=== PATIENT | female | born 1990 | race Caucasian/White ===

== ENCOUNTER 2019-11-25 12:09 | Emergency (ER) | payer BC, SELFPAY ==
--- NOTE | ~2019-11-25 | CT_ITS ---
EXAMINATION: CT brain wo con EXAM DATE: 11/25/2019 13:12 INDICATION: Temporary intermittent vision loss. Frontal headache. TECHNIQUE: Spiral CT of the head was performed without contrast. Axial, coronal and sagittal images were reviewed. The dose-length product (DLP) for this examination was 605.33 mGy-cm. The exposure w as tailored according to patient size, and iterative reconstruction (ASIR) was used as additional dos e reduction technique. There is no prior study for comparison. FINDINGS: There is no acute intraparenchymal hemorrhage. No evidence of intraparenchymal brain mass lesion. No evidence of acute infarction. There is no mass effect or midline shift. The ventricles are normal in size. There are no extra-axial collections. There are no acute calvarial fractures. T he orbits are unremarkable. Soft tissue is unremarkable. The visualized sinuses and mastoid air vandana ls are well aerated. IMPRESSION: 1. Normal head CT examination. Reviewed, dictated and finalized at location B.
--- NOTE | 2019-11-25 12:28 | ED.HA ---
HPI - Headache General Chief Complaint: Headache Stated Complaint: vision loss headache Time Seen by Provider: 11/25/19 12:28 Source: patient Mode of arrival: ambulatory Limitations: no limitations History of Present Illness HPI Narrative: 28-year-old woman with a history of headaches comes in today complaining of sudden onset of intermittent visual loss at approximately 10:55 a.m. this morning. Patient states that last about 4550 minutes. She states the symptoms started in her left eye and resembled blurred vision however she was unable to make out anything in front of her, even a waving hand. The symptoms then went to her right eye. The symptoms in her left eye seemed somewhat intermittent at 1st. MD elicited complaint: headache Time: 10:55 Onset description: suddenly Location: diffuse Severity: moderate Quality & Timing: throbbing Exacerbating factors: none Relieving factors: nothing Context: occurred at rest Associated symptoms: nausea Related Data Home Medications Medication Instructions Recorded Confirmed bupropion HCl 150 mg PO DAILY 11/25/19 11/25/19 ergocalciferol (vitamin D2) 1,250 mcg PO WEEKLY 11/25/19 11/25/19 [Vitamin D2] ibuprofen 600 mg PO QID 11/25/19 11/25/19 lamotrigine 25 mg PO DAILY 11/25/19 11/25/19 metoprolol succinate 50 mg PO DAILY 11/25/19 11/25/19 Allergies Allergy/AdvReac Type Severity Reaction Status Date / Time sumatriptan Allergy Intermediate Unverified 09/24/19 10:57 Review of Systems Constitutional: Constitutional: Denies chills, Denies fever(s) and Denies weakness Eyes: Eyes: Denies change in vision and Denies photophobia ENT: Denies dysphagia, Denies nasal congestion and Denies sore throat Cardiovascular: Cardiovascular: Denies chest pain and Denies radiating jaw, neck or arm pain Respiratory: Respiratory: Denies cough, Denies dyspnea and Denies wheezing Gastrointestinal: Gastrointestinal: Denies abdominal pain, Denies diarrhea, Reports nausea and Denies vomiting Genitourinary: Genitourinary: Denies nocturia and Denies dysuria Musculoskeletal: Musculoskeletal: Denies back pain, Denies arthralgias and Denies joint swelling Integumentary/Breasts: Skin/Breast: Denies pruritus, Denies erythema and Denies rash Neurologic: Denies vertigo, Denies dizziness and Denies syncope Endocrine: Endocrine: Denies polydipsia and Denies polyuria Hematologic/Lymphatic: Hematologic/Lymphatic: Denies easy bleeding and Denies easy bruising Allergic/Immunologic: Allergic/Immunologic: Denies lip swelling and Denies wheezing PMFSH Past Medical History Medical History Hypertension Mood disorder Social History Social History Smoking status: Never smoker Alcohol intake: never Substance use: never Living arrangements: with family Exam Const: General: healthy appearing and alert Orientation/consciousness: patient oriented x3 Limitations: no limitations Other: mild acute distress. HENMT: Head: normal to inspection Ears: external ears normal, TM's normal bilaterally and EAC's normal General nose exam: Normal nares present Throat: posterior oropharynx normal and uvula midline Eyes: Conjunctivae: conjunctivae normal Pupils: Equal, round and reactive pupils present EOM: EOMs intact bilaterally Resp: Effort & Inspection: normal respiratory effort and not labored Auscultation: clear to auscultation bilaterally, no rales, no rhonchi and no wheezes Cardio: Rate: regular rate Rhythm: regular rhythm Heart sounds: no murmurs GI: Inspection: non-distended GI Palp: Yes Soft to palpation, No Tenderness to palpation present (GI), No Guarding due to palpation present (GI) and No Rigid due to palpation Skin: General skin exam: normal color, no jaundice and no pallor Rashes: no rashes Neuro: General: patient oriented x3, moves all extremities, no focal motor defic
[2019-11-25 12:40] VITALS: BP 130/87; PULSE 67; RESP 20; TEMP 36.7; O2SAT 99
[2019-11-25 12:50] LABS: Add Urine Microscopic? YES; Appearance Urine Clear (Clear); Bilirubin Urine Negative (Negative); Blood Urine Negative (Negative); Color Urine Yellow (Yellow); Glucose Urine UA Negative (Negative); Ketones Urine Negative (Negative); Leukocyte Esterase Ur Trace (Negative); Nitrate Urine Negative (Negative); Protein Urine Negative (Negative); Specific Grav Ur 1.025 (1.010-1.020); Urobilinogen Urine 0.2 mg/dL (0.2-1.0)
[2019-11-25 12:55] LABS: Bacteria Urine 1+ /hpf; Mucus Urine Few /lpf; RBC Urine 0-2 /hpf (0-2); Squamous Epithelial Cell Urine Moderate /hpf (Few); WBC Urine 0-3 /hpf (0-3)
[2019-11-25 13:02] LABS: Basophils Absolute Auto 0.03 K/mm3 (0.00-0.10); Basophils Percent Auto 0.4 % (0.0-1.0); Eosinophils Absolute Auto 0.31 K/mm3 (0.02-0.50); Eosinophils Percent Auto 4.2 % (1.0-6.0); Hematocrit 40.3 % (35.0-49.0); Hemoglobin 12.8 g/dL (12.0-15.0); Immature Granulocyte Absolute 0.03 K/mm3 (0.00-0.00); Immature Granulocyte Percent A 0.4 % (0.0-0.0); Lymphocytes Absolute Auto 1.92 K/mm3 (1.10-4.50); Lymphocytes Percent Auto 25.8 % (18.0-42.0); Mean Corpuscular HGB Conc 31.8 g/dL (32.0-36.0); Mean Corpuscular Hemoglobin 25.3 pg (27.0-31.0); Mean Corpuscular Volume 79.8 fL (78.0-102.0); Mean Platelet Volume 9.7 fl (9.2-11.8); Monocytes Absolute Auto 0.58 K/mm3 (0.10-0.90); Monocytes Percent Auto 7.8 % (2.0-11.0); Neutrophils Absolute Auto 4.6 K/mm3 (1.7-7.2); Neutrophils Percent Auto 61.4 % (50.0-70.0); Platelet Count Result 288 K/mm3 (150-420); Red Blood Count 5.05 M/mm3 (4.20-5.40); Red Cell Distribution Width 14.2 % (11.6-14.4); White Blood Count 7.5 K/mm3 (4.8-10.8)
[2019-11-25 13:15] LABS: Partial Thromboplastin Time 30.8 SEC (22.3-31.6); Prothrombin Time 10.5 Seconds (9.64-11.0)
[2019-11-25 13:17] LABS: Alanine Aminotransferase 28 U/L (14-59); Albumin Level 3.7 g/dL (3.4-5.0); Alkaline Phosphatase 72 U/L (46-116); Aspartate Amino Transferase 14 U/L (15-37); Bilirubin,Total 0.3 mg/dL (0.00-1.00); Blood Urea Nitrogen 11 mg/dL (7-18); Carbon Dioxide 28 mmol/L (21-32); Chloride 101 mmol/L (98-108); Estimated Glomerular Filt Rate > 60; Glucose 98 mg/dL (70-99); Osmolality Calculated 285 mOsm/kg (285-295); Sodium 138 mmol/L (136-145); Total Protein 8.1 g/dL (6.4-8.2)
[2019-11-25 13:25] LABS: CRP 0.8 mg/dL (0.0-0.9)
[2019-11-25] MEDS: ONDANSETRON HCL ODT 4 MG TABLET PO (13:33)
[2019-11-25 14:07] LABS: Erythrocyte Sedimentation Rate 18 mm/hr (0-15)
--- NOTE | 2019-11-25 14:51 | PC.NURSE ---
DR RIOS CALLED FOR CONSULT
[2019-11-25 15:05] VITALS: BP 142/84; PULSE 76
== END 2019-11-25 13:05 | disposition home or self-care (01) ==
PROVIDERS: Emergency Provider Emergency Medicine; PCP Family Medicine
DX: G43.909 Migraine, unspecified, not intractable, without status migrainosus (principal); G45.3 Amaurosis fugax
CPT/HCPCS: 36415; 70450; 80053; 81001; 85025; 85610; 85652; 85730; 86140; 99282; 99284; A9270

== ENCOUNTER 2020-10-18 13:06 | Outpatient (CLI) | payer OTHER, SELFPAY ==
[2020-10-18 14:08] LABS: SARS-CoV-2 Ag Negative (Negative)
== END 2020-10-18 13:07 | disposition home or self-care (01) ==
LOC: CHSLAB 13:10
PROVIDERS: PCP Family Medicine; Visit Provider Nurse Practitioner Psychiatric/Mental Health
DX: R11.10 Vomiting, unspecified (principal)
CPT/HCPCS: 87426; C9803

== ENCOUNTER 2020-10-31 03:08 | Emergency (ER) | payer OTHER, SELFPAY ==
--- NOTE | ~2020-10-31 | XR_ITS ---
EXAMINATION: XR chest 2V DATE: 10/31/2020 04:08 INDICATION: Chest pain. TECHNIQUE: Frontal and lateral views of the chest were obtained. COMPARISON: Chest 2 views 07/20/2014, chest CT 01/06/2018 FINDINGS: The chest demonstrates clear lungs without pneumonia, pleural effusion, or pneumothorax. Th e heart size is normal. IMPRESSION: 1. No acute cardiopulmonary disease. Reviewed, dictated and finalized at location A.
[2020-10-31 03:08] VITALS: BP 139/101; PULSE 73; RESP 20; TEMP 37.1; O2SAT 99
[2020-10-31 03:36] VITALS: PULSE 77
--- NOTE | 2020-10-31 03:47 | ECG_ITS ---
Measurements Intervals [place] Rate: 76 P: 42 MA: 197 QRS: -13 QRSD: 112 T: 12 QT: 387 QTc: 436 Interpretive Statements SINUS RHYTHM LOW QRS VOLTAGE IN PRECORDIAL LEADS INTRAVENTRICULAR CONDUCTION DELAY VOLTAGE CRITERIA FOR LVH BORDERLINE T WAVE ABNORMALITY- ANTERIOR LEADS BASELINE ARTIFACT- I, II, III, AVR, AVL, AVF, V6 BORDERLINE ECG Electronically Signed On 11-01-2020 6:50:48 CDT by Cameron Espinoza D.O.
--- NOTE | 2020-10-31 03:59 | ED.CHESTPAIN ---
HPI - Chest Pain General Chief Complaint: Chest Pain Stated Complaint: chest pain Time Seen by Provider: 10/31/20 03:20 Source: patient Mode of arrival: ambulatory Limitations: no limitations History of Present Illness HPI narrative: Patient comes in after having chest heaviness at home for about 20 minutes. She says this happened after sex. Chest heaviness is moderately severe, without shortness of breath, diaphoresis, nausea or radiation, and ongoing since about 20 minutes ago. No other associated signs or symptoms. Medications at home, have not made this feel better. MD complaint: chest heaviness Onset (ago): minute(s) Timing of current episode: constant Prior episodes: Yes Onset: during exertion Pain location: substernal Pain radiation: none Severity: moderate Quality: tightness Relieving factors: nothing Exacerbating factors: exertion Context: other (pain after sexual activity) Associated symptoms: other (anxiety) Treatment prior to arrival: aspirin Related Data Home Medications Medication Instructions Recorded Confirmed ergocalciferol (vitamin D2) 1,250 mcg PO WEEKLY 11/25/19 10/31/20 [Vitamin D2] lamotrigine 25 mg PO DAILY 11/25/19 10/31/20 metoprolol succinate 50 mg PO DAILY 11/25/19 10/31/20 escitalopram oxalate 20 mg PO DAILY 10/31/20 10/31/20 lithium carbonate 900 mg PO DAILY 10/31/20 10/31/20 Allergies Allergy/AdvReac Type Severity Reaction Status Date / Time sumatriptan Allergy Intermediate Unknown Unverified 10/31/20 03:37 vancomycin AdvReac Redness of Verified 10/31/20 03:37 Skin Review of Systems Constitutional: Constitutional: Reports no additional constitutional complaints Eyes: Eyes: Reports no additional eye complaints ENT: Reports system reviewed and no additional complaints, except as documented Cardiovascular: Cardiovascular: Reports no additional cardiovascular complaints Respiratory: Respiratory: Reports no additional respiratory complaints Gastrointestinal: Gastrointestinal: Reports no additional gastrointestinal complaints Genitourinary: Genitourinary: Reports no additional female genitourinary complaints Musculoskeletal: Musculoskeletal: Reports no additional musculoskeletal complaints Integumentary/Breasts: Skin/Breast: Reports system reviewed and no additional complaints, except as docu Neurologic: Reports system reviewed and no additional complaints, except as documented Psychiatric: Psychiatric: Reports no additional psychiatric complaints Endocrine: Endocrine: Reports no additional endocrine complaints Hematologic/Lymphatic: Hematologic/Lymphatic: Reports no additional hematologic/lymphatic complaints Allergic/Immunologic: Allergic/Immunologic: Reports no additional allergic/immunologic complaints [facility] Past Medical History Medical History (Updated 11/03/20 @ 03:42 by Ad Gutierrez MD) Hypertension Mood disorder Surgical History Surgical History (Updated 11/03/20 @ 03:38 by Ad Gutierrez MD) No significant past surgical history Family History Family History Other No significant family history Social History Social History Smoking status: Never smoker Alcohol intake: never Substance use: never Exam Const: General: no acute distress Orientation/consciousness: patient oriented x3 HENMT: Head: normal to inspection Ears: external ears normal and TM's normal bilaterally General nose exam: Normal external nose present Mouth: Yes Normal oral and palatal mucosa present Throat: posterior oropharynx normal Eyes: Conjunctivae: conjunctivae normal Neck: Neck: normal visual inspection and no lymphadenopathy Chest: Chest palpation & inspection: normal inspection of the chest Resp: Effort & Inspection: normal respiratory effort Auscultation: clear to auscultation bilaterally Cardio: Rate: regular rate Rhythm: regular rhythm G
[2020-10-31 04:06] LABS: Basophils Absolute Auto 0.03 K/mm3 (0.00-0.10); Basophils Percent Auto 0.4 % (0.0-1.0); Eosinophils Absolute Auto 0.13 K/mm3 (0.02-0.50); Eosinophils Percent Auto 1.8 % (1.0-6.0); Hematocrit 33.9 % (35.0-49.0); Immature Granulocyte Absolute 0.02 K/mm3 (0.00-0.00); Immature Granulocyte Percent A 0.3 % (0.0-0.0); Lymphocytes Absolute Auto 2.26 K/mm3 (1.10-4.50); Lymphocytes Percent Auto 31.4 % (18.0-42.0); Mean Corpuscular HGB Conc 29.5 g/dL (32.0-36.0); Mean Corpuscular Hemoglobin 22.1 pg (27.0-31.0); Mean Platelet Volume 9.6 fl (9.2-11.8); Monocytes Absolute Auto 0.59 K/mm3 (0.10-0.90); Monocytes Percent Auto 8.2 % (2.0-11.0); Neutrophils Absolute Auto 4.2 K/mm3 (1.7-7.2); Neutrophils Percent Auto 57.9 % (50.0-70.0); Platelet Count Result 363 K/mm3 (150-420); Red Blood Count 4.52 M/mm3 (4.20-5.40); Red Cell Distribution Width 15.1 % (11.6-14.4); White Blood Count 7.2 K/mm3 (4.8-10.8)
[2020-10-31 04:22] LABS: Alanine Aminotransferase 29 U/L (14-59); Albumin Level 3.4 g/dL (3.4-5.0); Alkaline Phosphatase 64 U/L (46-116); Anion Gap 9 mmol/L (8-16); Aspartate Amino Transferase 10 U/L (15-37); Bilirubin,Total 0.1 mg/dL (0.00-1.00); Blood Urea Nitrogen 12 mg/dL (7-18); Calcium 8.8 mg/dL (8.5-10.1); Carbon Dioxide 28 mmol/L (21-32); Chloride 100 mmol/L (98-108); Estimated CRCL calculation 121 ml/min; Estimated Glomerular Filt Rate > 60; Glucose 123 mg/dL (70-99); NT Pro B Type Natriuretic Pept 12 pg/mL (0-125); Osmolality Calculated 284 mOsm/kg (285-295); Potassium 3.8 mmol/L (3.5-5.1); Sodium 137 mmol/L (136-145); Total Protein 7.5 g/dL (6.4-8.2); Troponin I < 4.0 ng/L (0.00-60.4)
--- NOTE | 2020-10-31 04:34 | PC.NURSE ---
PT RESTING PER COT, NO COMPLAINTS VOICED AT THIS TIME. AWAITING LAB RESULTS
[2020-10-31 06:12] VITALS: BP 128/89; PULSE 74; RESP 20; TEMP 36.6; O2SAT 99
== END 2020-10-31 06:10 | disposition left against medical advice (07) ==
PROVIDERS: Emergency Provider Emergency Medicine; PCP Family Medicine
DX: R07.9 Chest pain, unspecified (principal)
CPT/HCPCS: 36415; 71046; 80053; 83880; 84484; 85025; 85380; 93005; 99283; 99284

== ENCOUNTER 2020-11-26 10:49 | Emergency (ER) | payer OTHER, SELFPAY ==
[2020-11-26] VITALS (14 sets, daily range): BP systolic 136–156; BP diastolic 82–107; PULSE 75–85; RESP 16–32; TEMP 37.1; O2SAT 97–100
--- NOTE | ~2020-11-26 | CT_ITS ---
EXAMINATION: CT brain wo con INDICATION: Hypertension COMPARISON: 11/25/2019 TECHNIQUE: Standard unenhanced head CT. The dose-length product (DLP) was 681.00 mGy-cm. The mA was a djusted according to patient size. Iterative reconstruction technique was employed. FINDINGS: There is no intracranial hemorrhage, acute infarction, or abnormal mass lesion. The ventric les are normal. There is no abnormal mass effect or midline shift. The tyson-white matter differentiat ion is normal. The basal cisterns are patent. The orbits are normal. The paranasal sinuses, mastoids and calvarium are normal. IMPRESSION: 1. No acute intracranial abnormality. Reviewed, dictated and finalized at location A.
--- NOTE | ~2020-11-26 | XR_ITS ---
EXAMINATION: XR chest 2V DATE: 11/26/2020 11:18 INDICATION: Hypertension and shortness of breath TECHNIQUE: PA and lateral views of the chest are obtained. COMPARISON: 10/31/2020 FINDINGS: The lungs are free of acute opacities. There is no pleural effusion or pneumothorax. The ca rdiomediastinal silhouette is normal. There is mild thoracic spondylosis. IMPRESSION: 1. No acute cardiopulmonary abnormality. Reviewed, dictated and finalized at location A.
--- NOTE | 2020-11-26 11:01 | ECG_ITS ---
Measurements Intervals [place] Rate: 79 P: 26 ND: 192 QRS: -11 QRSD: 110 T: -1 QT: 389 QTc: 447 Interpretive Statements SINUS RHYTHM VOLTAGE CRITERIA FOR LVH BORDERLINE T WAVE ABNORMALITY- ANT/INF LEADS BORDERLINE ECG Electronically Signed On 11-26-2020 11:11:43 CDT by Cameron Espinoza D.O.
--- NOTE | 2020-11-26 11:38 | ED.GENADULT ---
HPI - General Adult General Chief complaint: Recheck/Abnormal Lab/Rx Stated complaint: High blood pressure Time Seen by Provider: 11/26/20 11:09 Source: patient and RN notes reviewed Mode of arrival: ambulatory Limitations: no limitations History of Present Illness HPI narrative: Patient is 29 years old white female presents with palpitation started last night lasted for few hours and then resolved with blood pressure 180/104. History of hypertension on metoprolol 50 mg once a day. Patient denies any stress. This morning patient was working and started having headache again and noticed that her neck is nodding. Currently patient feeling stiff in her neck. Patient chewed tobacco, denies drinking or using marijuana. Blood pressure on arrival to the emergency room was 156/107. Patient denies any fever, chills, nausea, vomiting, chest pain, shortness of breath. Related Data Home Medications Medication Instructions Recorded Confirmed ergocalciferol (vitamin D2) 1,250 mcg PO WEEKLY 11/25/19 10/31/20 [Vitamin D2] lamotrigine 25 mg PO DAILY 11/25/19 10/31/20 metoprolol succinate 50 mg PO DAILY 11/25/19 10/31/20 escitalopram oxalate 20 mg PO DAILY 10/31/20 10/31/20 lithium carbonate 900 mg PO DAILY 10/31/20 10/31/20 Allergies Allergy/AdvReac Type Severity Reaction Status Date / Time sumatriptan Allergy Intermediate Unknown Verified 11/26/20 11:53 vancomycin AdvReac Redness of Verified 11/26/20 11:53 Skin Review of Systems Review of Systems: Narrative: CONSTITUTIONAL: Denies fever, chills, or sweats. EYES: Denies visual changes, redness, or discharge. ENT: Denies rhinorrhea, congestion, sore throat, or otalgia. CARDIOVASCULAR: Denies chest pain, palpitations, or edema. RESPIRATORY: Denies cough or dyspnea. GASTROINTESTINAL: Denies abdominal pain, nausea, vomiting, or diarrhea. GENITOURINARY: Denies dysuria or hematuria. SKIN: Denies rash or itching. MUSCULOSKELETAL: Denies back pain, joint pain, or myalgia. NEUROLOGIC: Denies headache, numbness, or weakness. PSYCHIATRIC: Denies anxiety or depression. [facility] Past Medical History Medical History Hypertension Mood disorder Surgical History Surgical History No significant past surgical history Family History Family History Other No significant family history Social History Social History Smoking status: Never smoker Alcohol intake: never Substance use: never Exam Narrative: Exam Narrative: General appearance: Well-developed, well-nourished, laying down in bed comfortable, no family member at the bedside Skin: Normal color Head: Normocephalic, nontraumatic Eyes: Clear conjunctiva ENT: Oropharynx normal, ears normal, nose normal Neck: Supple, nontender Chest and respiratory: Airway patent, no respiratory distress, no accessory muscle use Heart: Regular rate/rhythm Abdomen: Soft, nontender, no organomegaly, quiet bowel sounds Vascular: Normal peripheral pulses, normal capillary refill. Musculoskeletal: Normal range of motion, nontender back Neurologic: Alert and oriented ?3, [employer] is normal as tested, no gross motor deficit Course Course Emergency Course: Stable Reevaluation(s) Reevaluation #1: Currently patient is asymptomatic Douglas level ordered, the machine is down, Blood pressure at the time of discharge is 132/90 after 1 mg of Ativan IV. Date: 11/26/20 Time: 14:43 Vital Signs Vital signs: Vital Signs Pulse Oximetry 99 11/26/20 10:55 Temperature
[2020-11-26 11:47] LABS: Basophils Percent Auto 0.7 % (0.2-1.2); Eosinophils Absolute Auto 0.1 K/mm3 (0-0.3); Eosinophils Percent Auto 2.3 % (0-4.4); Hematocrit 33.6 % (37.0-47.0); Hemoglobin 9.7 g/dL (12.0-15.0); Immature Granulocyte Absolute 0.03 K/mm3 (0.00-0.031); Immature Granulocyte Percent A 0.5 % (0-0.5); Lymphocytes Absolute Auto 1.54 K/mm3 (0.9-3.2); Mean Corpuscular HGB Conc 28.9 g/dl (32-36); Mean Corpuscular Hemoglobin 21.5 pg (26-34); Mean Corpuscular Volume 74.5 fl (80-100); Mean Platelet Volume 9.2 fl (7.4-10.4); Monocytes Absolute Auto 0.4 K/mm3 (0.1-0.6); Monocytes Percent Auto 7.2 % (2.6-8.5); Neutrophils Percent Auto 64.3 % (45.5-73.1); Platelet Count Result 356 k/mm3 (150-375); Red Blood Count 4.51 M/mm3 (4.2-5.4); Red Cell Distribution Width 15.9 % (11.5-14.5); White Blood Count 6.2 K/mm3 (4.5-10.0)
[2020-11-26 11:57] LABS: Anion Gap 6 mmol/L (8-16); Blood Urea Nitrogen 7 mg/dL (7-17); Calcium 9.3 mg/dL (8.4-10.2); Carbon Dioxide 27 mmol/L (22-30); Chloride 106 mmol/L (98-107); Estimated CRCL calculation 153 ml/min; Estimated Glomerular Filt Rate > 60; Glucose 106 mg/dL (65-105); Potassium 4.1 mmol/L (3.4-5.0); Sodium 139 mmol/L (137-145)
[2020-11-26 12:00] LABS: Alanine Aminotransferase 23 U/L (4-35); Albumin Level 4.2 g/dL (3.5-5.1); Alkaline Phosphatase 55 U/L (38-126); Aspartate Amino Transferase 23 U/L (14-36); Bilirubin,Total 0.2 mg/dL (0.2-1.3)
[2020-11-26] MEDS: ASPIRIN 81 MG CHEWABLE TABLET 324 MG PO (12:05)
[2020-11-26] MEDS: LORazepam INJ (*CRX) 2 MG/ML VIAL 1 MG IV PUSH (12:05)
[2020-11-26 12:08] LABS: Prothrombin Time 13.7 Seconds (11.1-14.7)
[2020-11-26 12:09] LABS: Troponin I < 0.012 ng/mL (0.000-0.034)
[2020-11-26 12:09] LABS: Partial Thromboplastin Time 29.2 SECONDS (22.3-36.8)
[2020-11-26 12:11] LABS: Hypochromasia 3+ (NORMAL); Ovalocytes 1+ (NORMAL); Platelet Estimate Adequate (Adequate)
[2020-11-26 13:11] LABS: Add Urine Microscopic? NO; Appearance Urine Clear (Clear); Bilirubin Urine Negative (Negative); Blood Urine Negative (Negative); Color Urine Yellow (Yellow); Glucose Urine UA Negative (Negative); Ketones Urine Negative (Negative); Leukocyte Esterase Ur Negative LEU/UL (Negative); Nitrate Urine Negative (Negative); Protein Urine Negative (Negative); Specific Grav Ur 1.014 (1.001-1.035); Urobilinogen Urine Negative mg/dL (<2.0)
[2020-11-26 15:15] LABS: Lithium 0.2 mmol/L (0.6-1.2)
[2020-11-26 15:20] LABS: Troponin I < 0.012 ng/mL (0.000-0.034)
== END 2020-11-26 16:24 | disposition home or self-care (01) ==
PROVIDERS: Emergency Provider Emergency Medicine; PCP Family Medicine
DX: R00.2 Palpitations (principal); I10 Essential (primary) hypertension
CPT/HCPCS: 36415; 70450; 71046; 80048; 80076; 80178; 81003; 84443; 84484; 85025; 85610; 85730; 93005; 96374; 99284; A9270; J2060

== ENCOUNTER 2020-12-12 21:32 | Emergency (ER) | payer OTHER, SELFPAY ==
--- NOTE | ~2020-12-12 | XR_ITS ---
EXAMINATION: XR chest 1V portable DATE: 12/12/2020 22:28 INDICATION: COVID-19 pneumonia. TECHNIQUE: A single frontal view of the chest was obtained. COMPARISON: Chest 2 views 11/26/2020, chest CT 01/06/2018 FINDINGS: The chest demonstrates clear lungs without pneumonia, pleural effusion, or pneumothorax. Th e heart size is normal. IMPRESSION: 1. No acute cardiopulmonary disease. Reviewed, dictated and finalized at location A.
[2020-12-12 22:00] VITALS: BP 140/80; PULSE 94; RESP 20; TEMP 37; O2SAT 98
--- NOTE | 2020-12-12 22:11 | ED.DENTAL ---
HPI - Dental/Oral General Chief complaint: Shortness of Breath/Dyspnea Stated complaint: URI,fever,SOB Time Seen by Provider: 12/12/20 22:11 Source: patient Mode of arrival: ambulatory Limitations: no limitations History of Present Illness HPI Narrative: Patient comes in with complaints of fever off and on since yesterday pm, starting about 10mp last night. She states she has felt severely ill, with body aches, hurting all over, having a mild headache, and fatigue. This has been ongoing since Sunday afternoon feeling severely ill. She has been exposed to Covid, and started just after that. Medications at home have not helped her to feel better, or modified the situation. she also complains of chronic tooth pain in what appears to be her left lower 6 year molar, which is broken off mostly, but does not have a distinct red ring around it. MD Complaint: tooth pain Onset (ago): week(s) Duration: intermittent Severity: mild Relieving factors: NSAIDs Context: history of dental caries Related Data Home Medications Medication Instructions Recorded Confirmed ergocalciferol (vitamin D2) 1,250 mcg PO WEEKLY 11/25/19 12/12/20 [Vitamin D2] lamotrigine [Lamictal] 25 mg PO DAILY 11/25/19 12/12/20 metoprolol succinate [Toprol XL] 50 mg PO DAILY 11/25/19 12/12/20 escitalopram oxalate [Lexapro] 20 mg PO DAILY 10/31/20 12/12/20 lithium carbonate [Lithobid] 900 mg PO DAILY 10/31/20 12/12/20 Allergies Allergy/AdvReac Type Severity Reaction Status Date / Time sumatriptan Allergy Intermediate Unknown Verified 12/12/20 22:11 vancomycin AdvReac Redness of Verified 12/12/20 22:11 Skin Review of Systems Constitutional: Constitutional: Reports chills, Reports fatigue, Reports fever(s) and Reports weakness Eyes: Eyes: Reports no additional eye complaints ENT: Reports system reviewed and no additional complaints, except as documented Cardiovascular: Cardiovascular: Reports no additional cardiovascular complaints Respiratory: Respiratory: Reports cough Gastrointestinal: Gastrointestinal: Reports no additional gastrointestinal complaints Genitourinary: Genitourinary: Reports no additional female genitourinary complaints Musculoskeletal: Musculoskeletal: Reports no additional musculoskeletal complaints Integumentary/Breasts: Skin/Breast: Reports system reviewed and no additional complaints, except as docu Neurologic: Reports system reviewed and no additional complaints, except as documented Psychiatric: Psychiatric: Reports no additional psychiatric complaints Endocrine: Endocrine: Reports no additional endocrine complaints Hematologic/Lymphatic: Hematologic/Lymphatic: Reports no additional hematologic/lymphatic complaints Allergic/Immunologic: Allergic/Immunologic: Reports no additional allergic/immunologic complaints PMFSH Past Medical History Medical History Hypertension Mood disorder Surgical History Surgical History No significant past surgical history Family History Family History Mother Heart disease Other No significant family history Social History Social History Smoking status: Never smoker Alcohol intake: never Substance use: never Gender identity (if verbalized by the patient): Female Exam Const: General: healthy appearing and no acute distress Nutritional Appearance: well nourished Orientation/consciousness: patient oriented x3 HENMT: Head: normal to inspection Ears: external ears normal and TM's normal bilaterally General nose exam: Normal external nose present Face and sinus: normal facial exam Mouth: Yes Normal oral and palatal mucosa present Throat: posterior oropharynx normal Eyes: Conjunctivae: conjunctivae normal Neck: Neck: normal visual inspection and no lymphad
[2020-12-12 22:44] LABS: Hematocrit 36.9 % (35.0-49.0); Hemoglobin 10.9 g/dL (12.0-15.0); Mean Corpuscular HGB Conc 29.5 g/dL (32.0-36.0); Mean Corpuscular Hemoglobin 21.3 pg (27.0-31.0); Mean Corpuscular Volume 72.2 fL (78.0-102.0); Mean Platelet Volume 9.9 fl (9.2-11.8); Platelet Count Result 337 K/mm3 (150-420); Red Blood Count 5.11 M/mm3 (4.20-5.40); Red Cell Distribution Width 16.1 % (11.6-14.4); White Blood Count 2.8 K/mm3 (4.8-10.8)
[2020-12-12 22:49] LABS: Influenza Control Valid (Valid)
[2020-12-12 22:52] LABS: Alanine Aminotransferase 22 U/L (14-59); Albumin Level 3.6 g/dL (3.4-5.0); Alkaline Phosphatase 59 U/L (46-116); Anion Gap 13 mmol/L (8-16); Aspartate Amino Transferase 12 U/L (15-37); Bilirubin,Total 0.2 mg/dL (0.00-1.00); Blood Urea Nitrogen 10 mg/dL (7-18); Calcium 8.6 mg/dL (8.5-10.1); Carbon Dioxide 26 mmol/L (21-32); Chloride 101 mmol/L (98-108); Estimated CRCL calculation 138 ml/min; Estimated Glomerular Filt Rate > 60; Glucose 111 mg/dL (70-99); Osmolality Calculated 290 mOsm/kg (285-295); Potassium 3.9 mmol/L (3.5-5.1); Sodium 140 mmol/L (136-145); Total Protein 7.6 g/dL (6.4-8.2)
[2020-12-12 22:59] LABS: Lactic Acid Reflex 1.2 mmol/L (0.4-2.0)
[2020-12-12 23:14] LABS: SARS-CoV-2 RNA PCR Positive (Negative)
[2020-12-12 23:18] LABS: Add Urine Microscopic? NO; Appearance Urine Clear (Clear); Bilirubin Urine Negative (Negative); Blood Urine Negative (Negative); Color Urine Light Yellow (Yellow); Glucose Urine UA Negative (Negative); Ketones Urine Negative (Negative); Leukocyte Esterase Ur Negative LEU/UL (Negative); Nitrate Urine Negative (Negative); Protein Urine Negative (Negative); Specific Grav Ur >= 1.030 (1.010-1.020); Urobilinogen Urine 0.2 mg/dL (0.2-1.0); pH Urine 5.5 (5.0-8.0)
[2020-12-12 23:31] LABS: Anisocytosis 2+ (NORMAL); Band Neutrophils Percent 0 % (0-6); Basophils Absolute Manual 0.02 K/mm3 (0-0.1); Basophils Percent Manual 1 % (0-1); Eosinophils Percent Manual 0 % (1-6); Large Platelets Present; Lymphocytes Absolute Manual 1.23 K/mm3 (1.1-4.5); Lymphocytes Percent Manual 44 % (18-44); Microcytosis 1+ (NORMAL); Monocytes Absolute Manual 0.16 K/mm3 (0.1-0.90); Monocytes Percent Manual 6 % (3-9); Neutrophils Absolute Manual 1.37 K/mm3 (1.7-7.2); Neutrophils Percent Manual 49 % (46-73); Platelet Estimate Adequate (Adequate); Total Cells Counted 100
[2020-12-12 23:32] LABS: Ovalocytes 1+ (NORMAL)
[2020-12-12] MEDS: DEXAMETHASONE 4 MG TABLET 8 MG PO (23:35)
[2020-12-12 23:55] VITALS: BP 129/88; PULSE 88; RESP 20; TEMP 37.8; O2SAT 98
== END 2020-12-13 00:08 | disposition home or self-care (01) ==
PROVIDERS: Emergency Provider Emergency Medicine; PCP Family Medicine
DX: U07.1 COVID-19 (principal)
CPT/HCPCS: 36415; 71045; 80053; 81003; 83605; 85025; 87804; 99283; C9803; J8540; U0003; U0005

== ENCOUNTER 2022-12-29 19:33 | Emergency (ER) | payer OTHER, SELFPAY ==
[2022-12-29 19:44] VITALS: BP 160/90; PULSE 66; RESP 20; TEMP 36.6; O2SAT 100
--- NOTE | 2022-12-29 19:53 | ED.HA ---
HPI - Headache General Chief Complaint: Unspecified Stated Complaint: puking, eyes/head pain, worked in the heat Source: patient Mode of arrival: ambulatory Limitations: no limitations History of Present Illness HPI Narrative: 32-year-old female with a history migraine, hypertension, mood disorder presents to the ER a 2 day history of -- bilateral headache with photophobia. no focal neuro deficits. headache is similar to her usual headaches -- patient worked all day yesterday in high temperature and feels exhausted. -- patient has nausea with vomiting. No fever or chills MD elicited complaint: headache Pertinent past history: migraines and hypertension Onset (ago): day(s) ( symptoms started yesterday) Onset description: gradually Location: frontal and generalized Severity: severe Pain scale (0-10): 10 Quality & Timing: aching Exacerbating factors: none Relieving factors: nothing Context: occurred at rest Associated symptoms: nausea and vomiting Related Data Home Medications Medication Instructions Recorded Confirmed ergocalciferol (vitamin D2) 1,250 1,250 mcg PO WEEKLY 11/25/19 12/29/22 mcg (50,000 unit) capsule (Vitamin D2) escitalopram oxalate 20 mg tablet 20 mg PO DAILY 10/31/20 12/29/22 (Lexapro) Allergies Allergy/AdvReac Type Severity Reaction Status Date / Time sumatriptan Allergy Intermediate Unknown Verified 12/12/20 22:11 vancomycin AdvReac Redness of Verified 12/12/20 22:11 Skin Review of Systems Review of Systems: All systems reviewed & are unremarkable except as noted in HPI and below Constitutional: Constitutional: Reports as per HPI and Reports no additional constitutional complaints Eyes: Eyes: Reports as per HPI and Reports no additional eye complaints ENT: Reports system reviewed and no additional complaints, except as documented and Reports as per HPI Cardiovascular: Cardiovascular: Reports as per HPI and Reports no additional cardiovascular complaints Respiratory: Respiratory: Reports as per HPI and Reports no additional respiratory complaints Gastrointestinal: Gastrointestinal: Reports as per HPI and Reports no additional gastrointestinal complaints Genitourinary: Genitourinary: Reports no additional female genitourinary complaints Musculoskeletal: Musculoskeletal: Reports no additional musculoskeletal complaints and Reports as per HPI Integumentary/Breasts: Skin/Breast: Reports system reviewed and no additional complaints, except as docu and Reports as per HPI Neurologic: Reports system reviewed and no additional complaints, except as documented and Reports as per HPI Psychiatric: Psychiatric: Reports no additional psychiatric complaints and Reports as per HPI Endocrine: Endocrine: Reports no additional endocrine complaints and Reports as per HPI Hematologic/Lymphatic: Hematologic/Lymphatic: Reports no additional hematologic/lymphatic complaints and Reports as per HPI Allergic/Immunologic: Allergic/Immunologic: Reports no additional allergic/immunologic complaints and Reports as per HPI [facility] Past Medical History Medical History Hypertension Mood disorder Surgical History Surgical History No significant past surgical history Family History Family History Mother Heart disease Other No significant family history Social History Social History Smoking status: Never smoker Alcohol intake: never Substance use: never Living arrangements: with family Gender identity (if verbalized by the patient): Female Exam Const: Orientation/consciousness: patient oriented x3 Limitations: no limitations HENMT: Head: normal to inspection Ears: external ears normal Face/Nose/Sinus: Normal external nose present Face and sinus: norm
[2022-12-29] MEDS: ONDANSETRON HCL ODT 4 MG TABLET PO (19:57)
[2022-12-29 20:14] LABS: Basophils Absolute Auto 0.04 K/mm3 (0.00-0.10); Basophils Percent Auto 0.6 % (0.0-1.0); Eosinophils Absolute Auto 0.15 K/mm3 (0.02-0.50); Eosinophils Percent Auto 2.1 % (1.0-6.0); Hematocrit 38.5 % (35.0-49.0); Hemoglobin 11.9 g/dL (12.0-15.0); Immature Granulocyte Absolute 0.02 K/mm3 (0.00-0.00); Immature Granulocyte Percent A 0.3 % (0.0-0.0); Lymphocytes Absolute Auto 2.07 K/mm3 (1.10-4.50); Lymphocytes Percent Auto 29.2 % (18.0-42.0); Mean Corpuscular HGB Conc 30.9 g/dL (32.0-36.0); Mean Corpuscular Hemoglobin 23.9 pg (27.0-31.0); Mean Corpuscular Volume 77.5 fL (78.0-102.0); Mean Platelet Volume 10.4 fl (9.2-11.8); Monocytes Percent Auto 8.5 % (2.0-11.0); Neutrophils Absolute Auto 4.2 K/mm3 (1.7-7.2); Neutrophils Percent Auto 59.3 % (50.0-70.0); Platelet Count Result 324 K/mm3 (150-420); Red Blood Count 4.97 M/mm3 (4.20-5.40); Red Cell Distribution Width 15.8 % (11.6-14.4); White Blood Count 7.1 K/mm3 (4.8-10.8)
[2022-12-29] MEDS: KETOROLAC 30 MG/ML VIAL (*BKC) IV PUSH (20:17)
[2022-12-29] MEDS: PROCHLORPERAZINE EDISYLATE 10 MG/2 ML VIAL IV PUSH (20:17)
[2022-12-29] MEDS: LACTATED RINGERS 1,000 ML 999 ML IV CONT (20:18)
[2022-12-29 20:31] LABS: Alanine Aminotransferase 26 U/L (14-59); Albumin Level 3.5 g/dL (3.4-5.0); Alkaline Phosphatase 74 U/L (46-116); Anion Gap 9 mmol/L (8-16); Aspartate Amino Transferase 15 U/L (15-37); Bilirubin,Total 0.4 mg/dL (0.00-1.00); Blood Urea Nitrogen 11 mg/dL (7-18); Calcium 8.8 mg/dL (8.5-10.1); Carbon Dioxide 27 mmol/L (21-32); Chloride 104 mmol/L (98-108); Estimated CRCL calculation 109 ml/min; Estimated Glomerular Filt Rate > 60; Glucose 104 mg/dL (70-99); Osmolality Calculated 289 mOsm/kg (285-295); Potassium 3.8 mmol/L (3.5-5.1); Sodium 140 mmol/L (136-145); Total Protein 7.6 g/dL (6.4-8.2)
[2022-12-29 20:36] LABS: Lactic Acid Reflex 1.1 mmol/L (0.4-2.0)
[2022-12-29 21:11] LABS: Appearance Urine Clear (Clear); Bilirubin Urine Negative (Negative); Blood Urine Negative (Negative); Color Urine Yellow (Yellow); Glucose Urine UA Negative (Negative); Ketones Urine Negative (Negative); Leukocyte Esterase Ur Negative LEU/UL (Negative); Nitrate Urine Negative (Negative); Protein Urine Negative (Negative)
[2022-12-29 21:12] LABS: Add Urine Microscopic? NO
[2022-12-29 21:29] VITALS: BP 140/90; PULSE 88; RESP 20; TEMP 36.6; O2SAT 96
== END 2022-12-29 21:34 | disposition home or self-care (01) ==
PROVIDERS: Emergency Provider Internal Medicine Critical Care Medicine; PCP Family Medicine
DX: R51.9 Headache, unspecified (principal); T67.5XXA Heat exhaustion, unspecified, initial encounter; I10 Essential (primary) hypertension
CPT/HCPCS: 36415; 80053; 81003; 83605; 85025; 96361; 96374; 96375; 99284; A9270; J0780; J1885; J7120

== ENCOUNTER 2023-07-07 16:40 | Emergency (ER) | payer OTHER, SELFPAY ==
[2023-07-07 16:47] VITALS: BP 152/96; PULSE 79; RESP 18; TEMP 37.3; O2SAT 100
--- NOTE | 2023-07-07 17:19 | PC.NURSE ---
area not visualized at this time. area of further evaluation upon supervisor tellers assessment.
--- NOTE | 2023-07-07 17:32 | ED.SKABFB ---
HPI - Skin/Abscess/Foreign Bdy General Chief complaint: Skin/Abscess/Foreign Body Stated complaint: Cyst burst on vagina Time Seen by Provider: 07/07/23 17:32 Source: patient, RN notes reviewed and old records reviewed Mode of arrival: ambulatory Limitations: no limitations History of Present Illness HPI narrative: 32 year old female who presents to [facility] care with complaints of noting swollen painful abscess to her right labia starting about 4 days ago that burst this morning. Patien reports that it drained yellowgreen purulen material and some bloody drainage but pain has significantly decreases. Patient here with concern of possibly needing antibiotic and requesting work note for today. Patient reports that she has had MRSA on her right arm previously and did have similar lesion to labia area about a year ago. MD complaint: abscess/boil Onset (ago): day(s) (4) Severity scale (1-10): 1 Treatments prior to arrival: NSAID and other (warm compresses) Related Data Home Medications Medication Instructions Recorded Confirmed ergocalciferol (vitamin D2) 1,250 1,250 mcg PO WEEKLY 11/25/19 12/29/22 mcg (50,000 unit) capsule (Vitamin D2) escitalopram oxalate 20 mg tablet 20 mg PO DAILY 10/31/20 12/29/22 (Lexapro) propranolol 20 mg tablet mg 07/07/23 ubrogepant 50 mg tablet (Ubrelvy) mg 07/07/23 Allergies Allergy/AdvReac Type Severity Reaction Status Date / Time sumatriptan Allergy Intermediate Unknown Verified 07/07/23 16:53 vancomycin AdvReac Redness of Verified 07/07/23 16:53 Skin Review of Systems Review of Systems: CONSTITUTIONAL: Denies fever, chills, or sweats. CARDIOVASCULAR: Denies chest pain, palpitations, or edema. RESPIRATORY: Denies cough or dyspnea. GASTROINTESTINAL: Denies abdominal pain, nausea, vomiting SKIN: Reports redness and swelling to right labia fold which broke open this morning and drained. Reports purulent drainage at first this morning then bloody looking drainage. painful, MUSCULOSKELETAL: Denies myalgia. NEUROLOGIC: Denies headache, numbness All systems reviewed & are unremarkable except as noted in HPI and below PMFSH Past Medical History Medical History (Updated 07/09/23 @ 12:38 by Elidia L. Stephanie, REPAIRER [employer] DOOR) GERD (gastroesophageal reflux disease) Hypertension Migraine Mood disorder MRSA infection Surgical History Surgical History History of cholecystectomy Family History Family History Mother Heart disease Other No significant family history Social History Social History Smoking status: Never smoker Alcohol intake: never Substance use: never Living arrangements: with family Gender identity (if verbalized by the patient): Female Comments At time of signature, agree with nursing past medical, surgical, social and family history. There is no relevant family history pertinent to the presenting complaint Exam Narrative: GENERAL: Well-appearing, well-nourished, and in no acute distress. HEAD: Normocephalic, atraumatic. EYES: PERRLA and EOMI. ENT: Nares clear, no rhinorrhea or epistaxis. Mucous membranes moist. NECK: Supple. no lymphadenopathy CHEST: Clear to auscultation. No respiratory distress. SAO2 100% on room air HEART: Regular rate and rhythm. No murmur heard. Normal peripheral pulses. ABDOMEN: Soft, nontender, nondistended, normal active bowel sounds. EXTREMITIES: Normal range of motion. No edema. SKIN: Warm, dry. Erythema, induration, tenderness,to right labia 0.25 circular draining lesion with bloody drainage noted, no acute warmth or swelling to area. decreased pain to site since abscess burst open, 4X4's applied to site. Patient repots less discomfort to site since it burst open and drained, afebrile NEURO: No focal deficits. Alert and oriented x3. Course Course Em
--- NOTE | 2023-07-07 17:43 | PC.NURSE ---
declined wound cx
== END 2023-07-07 17:52 | disposition home or self-care (01) ==
PROVIDERS: Emergency Provider Registered Nurse; PCP Family Medicine
DX: N76.4 Abscess of vulva (principal); K21.9 Gastro-esophageal reflux disease without esophagitis; I10 Essential (primary) hypertension; F39 Unspecified mood [affective] disorder; Z86.14 Personal history of Methicillin resistant Staphylococcus aureus infection
CPT/HCPCS: 99213; G0463

== ENCOUNTER 2024-12-21 05:21 | Emergency (ER) | payer OTHER, SELFPAY ==
[2024-12-21 05:22] VITALS: BP 142/97; PULSE 62; RESP 18; TEMP 36; O2SAT 100
--- OUTSIDE RECORDS SUMMARY | 2024-12-21 05:23 | XMS_ITS | Clinical Summary ---
Author Organization [facility] Address [facility] [place] [address] Care Team Providers Care Blow Mold Machine Operator Name Role Phone Omkar Cormier MD Primary Care Provider Social History Tobacco Use Types Packs/Day Years Used Date Smoking Tobacco: Never Assessed Comments Unknown Sex and Gender Information Value Date Recorded Sex Assigned at Not on file Legal Sex Female 5:53 PM RESEARCH STATISTICIAN Gender Identity Not on file Sexual Orientation Not on file Plan of Treatment Health Maintenance Due Date Last Done Comments Cervical Cancer Screening Pap Smear (Age 30 to 64) Every 3 Years 1991 Annual Physical 12/01/1994 DTaP, Tdap and Td Vaccines (5 - Tdap) 12/01/2002 12/26/1995, 03/20/1994, 12/09/1992, Additional history exists Hepatitis C 12/01/2009 Cervical Cancer Screening Pap with HPV Testing (Age 30 to 64) Every 5 Years 12/01/2021 Cervical Cancer Screening with HPV 12/01/2021 COVID-19 Vaccine ( season) 2024 Hepatitis B Vaccines Completed 08/26/2002, 01/29/2002, 12/24/2001 HPV Vaccines Aged Out No longer eligi ble based on patient's age to complete this topic Meningococcal B Vaccine Aged Out No l onger eligible based on patient's age to complete this topic Meningococcal Vaccine Aged Out No alexandru umm eligible based on patient's age to complete this topic Pneumococcal Vaccine: Pediatrics (0 to 5 Years) and At-Risk Patients (6 to 49 Years) Aged Out No longer eligible based on patient's age to complete this topic RSV Immunizations Under 20 Months Aged Out No longer eligible based on patient's age to complete this topic Insurance AETNA Care Teams Blow Mold Machine Operator Relationship Specialty Start Date End Date Omkar Cormier MD [address] [place] [id number] PCP - General FAMILY PRACTICE 05/23/21
--- OUTSIDE RECORDS SUMMARY | 2024-12-21 05:23 | XMS_ITS | Clinical Summary ---
Author Organization [facility] Address [address] [place] [address] Care Team Providers Care Financial Accountant Name Role Phone Omkar Cormier MD Primary Care Provider [phone] Source Comments [facility],non-owned Affiliates and Associated Physician Practices is amultiple site organization consisting of ambulatory clinics and hospital sitesin [place], [place], [place] and [place]. This disclosure is being madepursuant to the Care Everywhere program and may not contain all information available regarding this patient. Last updated 18.[facility] Allergies Active Allergy Reactions Criticality Noted Date Comments Sumatriptan Shortness of Breath High 07/30/2020 Vancomycin Itching 07/30/2020 Medications * Be aware that medications may not be up to date on this document. Alwaysverify current medications with the patient. lamoTRIgine (LAMICTAL) 100 MG tablet Take 200 mg by mouth at bedtime Active lithium carbonate (ESKALITH) 300 MG capsule Take 300-600 mg by mouth 2 times daily 300mg qam, 600 mg qpm Active escitalopram (LEXAPRO) 10 MG tablet Take 10 mg by mouth once daily Active metoprolol succinate XL 24hr (TOPROL XL) 50 MG tablet Take 50 mg by mouth once daily Active vitamin D3 (CHOLECALCIFERO L) 25 MCG (1000 UNITS) tablet Take 1,000 Units by mouth once daily Active pantoprazole EC (PROTONIX) 40 MG tablet Take 40 mg by mouth once daily Active ascorbic acid (VITAMIN C) 500 MG tablet Take 500 mg by mouth once daily Active Active Problems Problem Noted Date Diagnosed Date Rectal bleeding 08/12/2020 Esophageal dysphagia Gastroesophageal reflux dise ase with esophagitis without hemorrhage Dysphagia Resolved Problems Problem Noted Date Diagnosed Date Resolved Date Diarrhea 09/10/2020 Family History Medical History Relation Name Comments Colon polyps Mother Cancer - Colon Neg Hx Relation Name Status Comments Mother Social History Tobacco Use Types Packs/Day Years Used Date Smoking Tobacco: Every Day Smokeless Tobacco: Current Alcohol Use Standard Drinks/Week Comments Yes 0 (1 standard drink = 0.6 oz pur e alcohol) AUDIT-C Answer Date Recorded Q1: How often do you have a drink containing alc ohol? Monthly or less 08/12/2020 Average Number of Drinks Not on file 021 Frequency of Binge Drinking Not on file 08/02 Comments Unknown Sex and Gender Information Value Date Recorded Sex Assigned at Not on file Legal Sex Female 1:34 PM FINGERNAIL TECHNICIAN Gender Identity Not on file Sexual Orientation Not on file Last Filed Vital Signs Vital Sign Reading Time Taken Comments Blood Pressure 127/77 08/13/2020 12:50 PM FINGERNAIL TECHNICIAN Pulse 69 08/13/2020 12:50 PM FINGERNAIL TECHNICIAN Temperature 36.6 C (97.9 F) 08/13/2020 8:04 AM FINGERNAIL TECHNICIAN Respiratory Rate 16 08/13/2020 12:50 PM FINGERNAIL TECHNICIAN Oxygen Saturation 98% 08/13/2020 12:50 PM FINGERNAIL TECHNICIAN Inhaled Oxygen Concentration - - Weight 154.2 kg (340 lb) 08/12/2020 3:09 PM FINGERNAIL TECHNICIAN Height 180.3 cm (5' 11) 08/12/2020 3:09 PM FINGERNAIL TECHNICIAN Body Mass Index 47.42 08/12/2020 3:09 PM FINGERNAIL TECHNICIAN Plan of Treatment Health Maintenance Due Date Last Done Comments HIV SCREENING 12/01/2006 HEPATITIS C SCREENING 11/27/2009 DTAP/TDAP/TD VACCINES (1 - Tdap) 12/01/2010 HEPATITIS B VACCINE (1 of 3 - 19+ 3-dose series) 12/01/2010 PNEUMOCOCCAL VACCINE (1 of 2 - PCV) 12/01/2010 HPV VACCINE (1 - 3-dose SCDM series) 12/01/2018 COVID-19 VACCINE (1 - 2023-2 5 season) 2024 DEPRESSION SCREENING 06/04/2024 INFLUENZA VACCINE (#1) 2025 ZOSTER VACCINE (1 of 2) 12/01/2041 HIB VACCINE Aged Out No longer eligi ble based on patient's age to complete this topic MENINGOCOCCAL (Group B) VACC INE SHARED DECISION-MAKING Aged Out No longer eligibl e based on patient's age to complete this topic MENINGOCOCCAL GROUPS A/C/Y/W VACCINE Aged Out No longer eligible b ased on patient's age to complete this topic Insurance Advance Directives * Full Code (Latest Code Status on File) Date Activated Date Inactivated Comments 08/13/2020 1:31 PM 08/13/2020 5:04 PM * Full Code Date Activated Date Inactivated Comments 08/12/2020 9:52 PM 08/13/2020 1:31 PM Care Teams Financial Accountant Relationship Specialty Start Date End Date Omkar Cormier MD [address] [place] [address] PCP - General Family Medicine 07/30/20
--- OUTSIDE RECORDS SUMMARY | 2024-12-21 05:23 | XMS_ITS | Clinical Summary ---
Author Organization [facility] Address [address] [place] [address] Care Team Providers Care Assistant Professor Of Spanish Name Role Phone Omkar Cormier MD Primary Care Provider Allergies Active Allergy Reactions Criticality Noted Date Comments Sumatriptan Shortness of breath High 11/28/2017 Vancomycin Itching Low 11/28/2017 Medications LORazepam (ATIVAN) 0.5 mg tabletIndicatio ns:anxiety Take 0.5 mg by mouth every 6 (six) hours as needed for anxiety. Active ibuprofen (ADVIL,MOTRIN) 800 mg tablet Take 800 mg by mouth every 6 (six) hours as needed for pain. Active escitalopram (LEXAPRO) 10 mg tabletIndicatio ns:Anxiety with Depression Take 10 mg by mouth daily. Active ergocalciferol, vitamin D2, 2,000 unit tablet Take 1 tablet by mouth. Active docusate sodium (COLACE) 100 mg capsuleIndicati ons:constipatio n Take 1 capsule (100 mg total) by mouth 2 (two) times a day. 8 Active Additional Information Patient not taking.Reported on 03/27/2021 HYDROcodone-shiloh taminophen (NORCO) 5-325 mg per tabletIndicatio ns:Pain Take 1 tablet by mouth every 6 (six) hours as needed for pain. 10 tablet 8 Active Additional Information Patient not taking.Reported on 03/27/2021 traMADoL (ULTRAM) 50 mg tablet Take 1-2 tablets (50-100 mg total) by mouth every 6 (six) hours as needed for pain 20 tablet 0 Active Additional Information Patient not taking.Reported on 03/27/2021 lithium 300 mg capsule 1 Active metoprolol XL (TOPROL-XL) 50 mg extended release tablet Take 50 mg by mouth daily Active venlafaxine (EFFEXOR) 25 mg tablet Take 25 mg by mouth 2 (two) times a day Active Active Problems Problem Noted Date Diagnosed Date Food impaction of esophagus 05/13/2020 Cellulitis of right upper extremity 11/28/2017 Assessment & Plan (11/28/2017 11:32 PM CDT): Patient had itching with vanco and was switched to daptomycin. ID is following. Will outline the erythema to ensure it is not worsening. Patient is advised to notify us immediately if she has sudden worsening of her pain, develops numbness or tingling in her fingers or if her forearm becomes very tense. Patient states she would. Will continue with p.r.n. [place] and morphine . Will add p.r.n. Toradol for additional pain control. Patient states she is able to bend her elbow more the with pain medication. Anxiety 11/28/2017 Assessment & Plan (11/28/2017 11:29 PM CDT): Continue SSRI and PRN ativan. Migraines 11/28/2017 Assessment & Plan (11/28/2017 11:31 PM CDT): Patient takes PRN ibuprofen but will hold as patient has PRN toradol. Abscess of arm, right Surgical History Surgery Date Site/Laterality Comments CHOLECYSTECTOMY Medical History Medical History Date Comments Bipolar 1 disorder (HCC) Hypertension Family History Medical History Relation Name Comments Cancer Mother Diabetes Mother Heart disease Mother Relation Name Status Comments Mother Social History Tobacco Use Types Packs/Day Years Used Date Smoking Tobacco: Never Smokeless Tobacco: Current Chew Alcohol Use Standard Drinks/Week Comments Yes 0 (1 standard drink = 0.6 oz pur e alcohol) very rare Comments No Sex and Gender Information Value Date Recorded Sex Assigned at Not on file Legal Sex 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 Gender Identity Not on file Sexual Orientation Not on file Obstetrics History Last Filed Vital Signs Vital Sign Reading Time Taken Comments Blood Pressure 121/77 03/27/2022 4:00 PM CDT Pulse 87 03/27/2022 4:00 PM CDT Temperature 36.9 C (98.5 F) 03/27/2022 5:25 PM CDT Respiratory Rate 20 03/27/2022 1:00 PM CDT Oxygen Saturation 100% 03/27/2022 4:00 PM CDT Inhaled Oxygen Concentration - - Weight 144.7 kg (319 lb) 03/27/2022 9:09 AM CDT Height 180.3 cm (5' 11) 03/27/2022 9:09 AM CDT Body Mass Index 44.49 03/27/2022 9:09 AM CDT Plan of Treatment Health Maintenance Due Date Last Done Comments Cervical Cancer Screening 1991 Depression Screening 1991 Hepatitis C Screening 1991 DTaP/Tdap/Td Vaccine (1 - Tdap) 12/01/2002 Varicella Vaccines (1 of 2 - 13+ 2-dose series) 12/01/2004 Hepatitis B Screening 12/01/2009 Regular Well Visit/Exam 18-64 12/01/2009 Influenza Vaccine (#1) 2025 HPV Vaccines Aged Out No longer eligi ble based on patient's age to complete this topic Pneumococcal vaccine <65 Aged Out No longer eligible based on patient's age to complete this topic Insurance [facility] AETNA HEALTHCARE HMO Advance Directives For more information, please contact: [phone] * Full Code (Latest Code Status on File) Date Activated Date Inactivated Comments 05/13/2020 11:21 AM 05/13/2020 10:05 PM * Full Code Date Activated Date Inactivated Comments 11/28/2017 1:51 PM 12/01/2017 4:27 PM Care Teams Assistant Professor Of Spanish Relationship Specialty Start Date End Date Omkar Cormier MD PCP - General 09/12/17
--- OUTSIDE RECORDS SUMMARY | 2024-12-21 05:23 | XMS_ITS | Referral Summary ---
Author Organization [facility] Address [address] [place] [address] Care Team Providers Care Network Operations Lead Name Role Phone Omkar Cormier MD Primary [...] states she would. Will continue with p.r.n. [place] and morphine . Will add p.r.n. Toradol [...] has PRN toradol. 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 O Advance Directives For more information, please contact: [phone] * Full Code (Latest Code Status on File) Date Activated Date Inactivated Comments 05/13/2020 11:21 AM 05/13/2020 10:05 PM * Full Code Date Activated Date Inactivated Comments 11/28/2017 1:51 PM 12/01/2017 4:27 PM Care Teams Network Operations Lead Relationship Specialty Start Date End Date Omkar Cormier MD PCP - General 09/12/17
--- OUTSIDE RECORDS SUMMARY | 2024-12-21 05:23 | XMS_ITS | Clinical Summary ---
Author Organization [facility] Address [address] [place] [address] Phone Care Team Providers Care Wireless Field Technician Name Role Phone Luis Morse PAC Primary Care Provider [phone] Allergies Active Allergy Reactions Criticality Noted Date Comments Sumatriptan Shortness of Breath 10/24/2018 Vancomycin Hcl Itching 10/24/2018 Medications ibuprofen (MOTRIN) 800 MG Tablet Take 1 Tab by mouth every 8 hours as needed for Pain. 30 Tab 0 7 Active HYDROcodone-shiloh taminophen (NORCO) 5-325 MG Tablet Take 1-2 Tabs by mouth every 4 hours as needed for Pain. 20 Tab 0 7 Active Additional Information Patient not taking.Reported on 10/24/2018 ARIPiprazole (ABILIFY) 5 MG Tablet Take 5 mg by mouth daily. 2 9 Active escitalopram (LEXAPRO) 10 MG Tablet Take 10 mg by mouth daily. 2 9 Active tiZANidine (ZANAFLEX) 2 MG Tablet Take 1 Tab by mouth 3 times daily. 90 Tab 9 Active Active Problems Problem Noted Date Diagnosed Date Numbness and tingling in both hands 10/29/2018 Cervicalgia 10/24/2018 Chronic pain of both shoulders 10/24/2018 Social History Tobacco Use Types Packs/Day Years Used Date Smoking Tobacco: Never Smokeless Tobacco: Current Chew Alcohol Use Standard Drinks/Week Comments No 0 (1 standard drink = 0.6 oz pur e alcohol) Comments No Sex and Gender Information Value Date Recorded Sex Assigned at Not on file Legal Sex Female 10:31 PM CDT Gender Identity Not on file Sexual Orientation Not on file Last Filed Vital Signs Vital Sign Reading Time Taken Comments Blood Pressure 143/90 10/24/2018 9:32 AM CDT Pulse 76 10/24/2018 9:32 AM CDT Temperature 36.6 C (97.9 F) 10/24/2018 9:32 AM CDT Respiratory Rate 18 06/08/2016 10:14 PM MEDICAL LIBRARY ASSISTANT Oxygen Saturation 99% 10/24/2018 9:32 AM CDT Inhaled Oxygen Concentration - - Weight 145.2 kg (320 lb) 09/20/2018 6:54 AM CDT Height 180.3 cm (5' 11) 06/08/2016 10:14 PM MEDICAL LIBRARY ASSISTANT Body Mass Index 44.63 06/08/2016 10:14 PM MEDICAL LIBRARY ASSISTANT Plan of Treatment Health Maintenance Due Date Last Done Comments Hepatitis C Virus (HCV) Screening 1991 TdaP Immunization 1991 Human Papillomavirus (HPV) Immunization (1 - 3-dose series) 12/01/2006 Pap Smear 12/01/2012 Cervical Cancer Screening (CCS) 12/01/2021 HPV/Cotest 12/01/2021 SARS-COV-2 Immunization ( - season) 2024 Influenza Immunization (#1) 2025 Respiratory Syncytial Virus (RSV) Immunization (Adult) (1 - 1-dose 75+ series) 12/01/2066 DTaP/Tdap/Td Immunization Discontinued 1995, 03/20/1994, 12/09/1992, Additional history exists Hepatitis B Immunization Completed 003, 01/29/2002, 12/24/2001 Meningococcal Immunization (ACWY) Aged Out No longer eligible based on patient's age to complete this topic Pneumococcal Immunization Combined Aged Out No longer eligible based on patient's age to complete this topic Rotavirus Immunization Aged Out No lo nger eligible based on patient's age to complete this topic Insurance MEDICAID [employer] Care Teams Wireless Field Technician Relationship Specialty Start Date End Date Luis Morse, PAC [address] [place] [id number] PCP - General Family Medicine 06/08/16
--- NOTE | 2024-12-21 05:40 | ED.DENTAL ---
HPI - Dental/Oral General Chief complaint: Dental/Oral Stated complaint: dental pain Source: patient Mode of arrival: ambulatory Limitations: no limitations History of Present Illness HPI Narrative: 34 year old female presents to the Emergency Department complaining of dental pain. Onset 3 days ago. Has not called Dentist. Complaint: tooth pain Onset (ago): day(s) (3) Duration: constant Severity: moderate Related Data Home Medications ?Medication ?Instructions ?Recorded ?Confirmed ?Last Taken ?Type ergocalciferol (vitamin D2) 1,250 1,250 mcg PO WEEKLY 11/25/19 12/29/22 Unknown History mcg (50,000 unit) capsule (Vitamin D2) escitalopram oxalate 20 mg tablet 20 mg PO DAILY 10/31/20 12/29/22 Unknown History (Lexapro) propranolol 20 mg tablet mg 07/07/23 Unknown History ubrogepant 50 mg tablet (Ubrelvy) mg 07/07/23 Unknown History Allergies Allergy/AdvReac Type Severity Reaction Status Date / Time sumatriptan Allergy Intermediate Unknown Verified 12/21/24 05:24 vancomycin AdvReac Redness of Verified 12/21/24 05:24 Skin Review of Systems Review of Systems: All systems reviewed & are unremarkable except as noted in HPI and below Constitutional: Constitutional: Reports as per HPI, Denies chills and Denies fever(s) Eyes: Eyes: Reports as per HPI ENT: Reports system reviewed and no additional complaints, except as documented, Denies nasal congestion and Denies sore throat Cardiovascular: Cardiovascular: Reports as per HPI and Denies chest pain Respiratory: Respiratory: Reports as per HPI and Reports dyspnea Gastrointestinal: Gastrointestinal: Reports as per HPI, Reports nausea and Reports vomiting Musculoskeletal: Musculoskeletal: Reports no additional musculoskeletal complaints Integumentary/Breasts: Skin/Breast: Reports system reviewed and no additional complaints, except as docu Neurologic: Reports system reviewed and no additional complaints, except as documented Psychiatric: Psychiatric: Reports no additional psychiatric complaints Endocrine: Endocrine: Reports no additional endocrine complaints Hematologic/Lymphatic: Hematologic/Lymphatic: Reports no additional hematologic/lymphatic complaints Allergic/Immunologic: Allergic/Immunologic: Reports no additional allergic/immunologic complaints PMFSH Past Medical History Medical History GERD (gastroesophageal reflux disease) Migraine MRSA infection Mood disorder Hypertension Surgical History Surgical History History of cholecystectomy Family History Family History Mother Heart disease Other No significant family history Social History Social History Smoking status: Never smoker Alcohol intake: never Substance use: never Living arrangements: with family Gender identity (if verbalized by the patient): Female Exam Const: Nutritional Appearance: obese Orientation/consciousness: patient oriented x3 Limitations: no limitations HENMT: Head: normal to inspection Ears: external ears normal Face/Nose/Sinus: Normal external nose present Face and sinus: normal facial exam Mouth: Yes Normal oral and palatal mucosa present Other: extensive dental decay Eyes: Pupils: Equal, round and reactive pupils present EOM: EOMs intact bilaterally Direct Ophthalmoscopy: no photophobia Neck: Neck: normal visual inspection Chest: Chest palpation & inspection: normal inspection of the chest Resp: Effort & Inspection: normal respiratory effort Auscultation: clear to auscultation bilaterally Cardio: Rate: regular rate Rhythm: regular rhythm GI: Inspection: non-distended GI Palp: Yes Soft to palpation and No Tenderness to palpation present (GI) Skin: General skin exam: normal color Neuro: General: patient oriented x3 Speech: normal speech Other: grossly normal Extrem: General: normal to inspection Psych: Mental Status: mental status grossly normal Course Vital Signs Vital signs: Vital Signs Temperature 36.0 C L 12/21/24 05:22 Pulse Rate 62 12/21/24 05:22 Respiratory Rate 18 12/21/24 05:22 Blood Pressure 142/97 H 12/21/24 05:22 Pulse Oximetry 100 12/21/24 05:22 Oxygen Delivery Room Air 12/21/24 05:22 Temperature 36.0 C L 12/21/24 05:22 Pulse Rate 62 12/21/24 05:22 Respiratory Rate 18 12/21/24 05:22 Blood Pressure 142/97 H 12/21/24 05:22 Pulse Oximetry 100 12/21/24 05:22 Oxygen Delivery Room Air 12/21/24 05:22 MDM - Dental/Oral MDM Narrative Medical decision making narrative: 34 y/o female presents to the ED c/o dental pain x 3 days. Has not called Dentist PE: diffuse dental decay Tx: Augmentin 875 mg po, Doss 10 mg po Rx and Instructions Discharge Plan Discharge Clinical Impression: Dental caries, Pain, dental Patient Disposition: Home Condition: Stable Instructions: Antibiotic Form, Toothache (ED) Additional Instructions: Take medications as prescribed Follow up with your Dentist Patient Language: Maltese Prescriptions: New amoxicillin-pot clavulanate 875-125 mg tablet 1 tablet PO Q12H Qty: 14 0RF hydrocodone-acetaminophen 10-325 mg tablet 1 tablet PO Q6H PRN (Reason: pain) Qty: 20 0RF No Action ergocalciferol (vitamin D2) [Vitamin D2] 1,250 mcg (50,000 unit) capsule 1,250 mcg PO WEEKLY escitalopram oxalate [Lexapro] 20 mg tablet 20 mg PO DAILY propranolol 20 mg tablet Ubrelvy 50 mg tablet sulfamethoxazole-trimethoprim [Bactrim DS] 800-160 mg tablet 1 tablet PO Q12H Qty: 20 0RF mupirocin 2 % ointment 1 applic topical BID Qty: 22 0RF Follow-up/Referrals: Lito,TRENT Smith [Primary Care Provider] - Stand Alone Forms: Work/School Release IP Time of Disposition: 05:53
[2024-12-21] MEDS: HYDROcodone/acetaminophen (*CRX) 10-325 MG TABLET 1 TAB PO (05:54)
== END 2024-12-21 06:27 | disposition home or self-care (01) ==
PROVIDERS: Emergency Provider Emergency Medicine; PCP Physician Assistant
DX: K02.9 Dental caries, unspecified (principal); I10 Essential (primary) hypertension
CPT/HCPCS: 99283; A9270

== ENCOUNTER 2025-01-21 18:19 | Emergency (ER) | payer OTHER, SELFPAY ==
--- OUTSIDE RECORDS SUMMARY | 2025-01-21 18:22 | XMS_ITS | Clinical Summary ---
Author Organization [facility] Address [address] [place] [address] Phone Care Team Providers Care Service Assistant Name Role Phone Luis Morse PAC Primary Care Provider [phone] Allergies Active Allergy Reactions Criticality Noted Date [...] CDT Respiratory Rate 18 06/08/2016 10:14 PM HIM DIRECTOR Oxygen Saturation 99% 10/24/2018 9:32 AM CDT Inhaled Oxygen Concentration - - Weight 145.2 kg (320 lb) 09/20/2018 6:54 AM CDT Height 180.3 cm (5' 11) 06/08/2016 10:14 PM HIM DIRECTOR Body Mass Index 44.63 06/08/2016 10:14 PM HIM DIRECTOR Plan of Treatment Health Maintenance Due Date Last Done Comments Hepatitis C Virus (HCV) Screening 1991 TdaP Immunization 1991 Pap Smear 12/01/2012 Human Papillomavirus (HPV) Immunization (1 - 3-dose SCDM series) 12/01/2018 Cervical Cancer Screening (CCS) 12/01/2021 HPV/Cotest 12/01/2021 SARS-COV-2 Immunization ( season) 2024 Influenza Immunization (#1) 2025 Respiratory [...] Insurance MEDICAID [employer] Care Teams Service Assistant Relationship Specialty Start Date End Date Luis Morse, PAC [address] [place] [address] PCP - General Family Medicine 06/08/16
--- OUTSIDE RECORDS SUMMARY | 2025-01-21 18:22 | XMS_ITS | Patient Health Record ---
Author Organization [facility] Address [address] [facility] [address] [place] [address] Care Team Providers Care C D Area Supervisor Name Role Phone John Bradley Unavailable [phone] Reason For Referral No Information Medications Medication SIG (Take, Route, Frequency, Duration) Notes Start Date End Date Status Cyclobenzaprine HCl 5 MG Tablet Oral Active traMADol HCl 50 MG Tablet Oral Active Escitalopram Oxalate 10 MG Tablet Oral Active Sulfamethoxazole-Trimetho prim 800-160 MG Tablet Oral Activ e predniSONE 10 MG Tablet Oral Active Clindamycin HCl 300 MG Capsule Oral Active lamoTRIgine 25 MG Tablet Oral Active Pantoprazole Sodium 40 MG Tablet Delayed Release Oral Activ e Albuterol Sulfate (2.5 MG/3ML) 0.083% Nebulization Solution Inhalation Active buPROPion HCl ER (XL) 300 MG Tablet Extended Release 24 Hour Oral Active Cyclobenzaprine HCl 10 MG Tablet Oral Active [place] Carbonate 300 MG Capsule Oral Active lamoTRIgine 100 MG Tablet Oral Active Amoxicillin-Pot Clavulanate 875-125 MG Tablet Oral Active Dicyclomine HCl 10 MG Capsule Oral Active dexAMETHasone 2 MG Tablet Oral Active Escitalopram Oxalate 20 MG Tablet Oral Active metroNIDAZOLE 500 MG Tablet Oral Active PEG-3350 AND ELECTROLYTES 236-22.74-6.74 -5.86 gram Solution Reconstituted Oral *Reorder from Packet Design for eRx and Interaction Alerts* Active ProAir HFA 108 (90 Base) MCG/ACT Aerosol Solution Inhalation Act fredrick [place] Carbonate ER 300 MG Tablet Extended Release Oral Active methylPREDNISolone 4 MG Tablet Therapy Pack Oral Active Amoxicillin 500 MG Capsule Oral Active Ondansetron HCl 4 MG Tablet Oral Active Metoprolol Succinate ER 50 MG Tablet Extended Release 24 Hour Oral Active Plan Of Treatment No Information Insurance Providers Payer Name Payer Address Payer Phone Subscriber Number Group Number Insured Name Patient Relationship to Insured Coverage Start Date Coverage End Date [employer] [employer] [address] [place] [address] [id number] CATHERINE KRUSE Self - patient is the insured
--- OUTSIDE RECORDS SUMMARY | 2025-01-21 18:22 | XMS_ITS | Clinical Summary ---
Author Organization [facility] Address [address] [place] [address] Care Team Providers Care People Greeter Name Role Phone Omkar Cormier MD Primary [...] states she would. Will continue with p.r.n. [place] and morphine . Will add p.r.n. Toradol [...] on file Legal Sex Female 1:25 PM SEWING LINE BALER Gender Identity Not on file Sexual Orientation [...] Screening 12/01/2009 Regular Well Visit/Exam 18-64 12/01/2009 HPV Vaccines (1 - 3-dose SCD M series) 12/01/2018 Influenza Vaccine (#1) 2025 Pneumococcal vaccine <65 Aged Out No longer eligible based on patient's age to complete this topic Insurance [facility] [employer] HMO Advance Directives For more information, please contact: [phone] * Full Code (Latest Code Status on File) Date Activated Date Inactivated Comments 05/13/2020 11:21 AM 05/13/2020 10:05 PM * Full Code Date Activated Date Inactivated Comments 11/28/2017 1:51 PM 12/01/2017 4:27 PM Care Teams People Greeter Relationship Specialty Start Date End Date Omkar Cormier MD PCP - General 09/12/17
--- OUTSIDE RECORDS SUMMARY | 2025-01-21 18:22 | XMS_ITS | Clinical Summary ---
Author Organization [facility] Address [address] [place] [address] Care Team Providers Care Newspaper Correspondent Name Role Phone Omkar Cormier MD Primary Care Provider [phone] Source Comments [facility],non-owned Affiliates and Associated Physician Practices is amultiple site organization consisting of ambulatory clinics and hospital sitesin [place] and [place]. This disclosure is being madepursuant to the Care Everywhere program and may not contain all information available regarding this patient. Last updated 18.[facility] Allergies Active Allergy Reactions Criticality Noted Date [...] on file Legal Sex Female 1:34 PM EPIC WILLOW SPECIALIST Gender Identity Not on file Sexual Orientation Not on file Last Filed Vital Signs Vital Sign Reading Time Taken Comments Blood Pressure 127/77 08/13/2020 12:50 PM EPIC WILLOW SPECIALIST Pulse 69 08/13/2020 12:50 PM EPIC WILLOW SPECIALIST Temperature 36.6 C (97.9 F) 08/13/2020 8:04 AM EPIC WILLOW SPECIALIST Respiratory Rate 16 08/13/2020 12:50 PM EPIC WILLOW SPECIALIST Oxygen Saturation 98% 08/13/2020 12:50 PM EPIC WILLOW SPECIALIST Inhaled Oxygen Concentration - - Weight 154.2 kg (340 lb) 08/12/2020 3:09 PM EPIC WILLOW SPECIALIST Height 180.3 cm (5' 11) 08/12/2020 3:09 PM EPIC WILLOW SPECIALIST Body Mass Index 47.42 08/12/2020 3:09 PM EPIC WILLOW SPECIALIST Plan of Treatment Health Maintenance Due Date [...] 9:52 PM 08/13/2020 1:31 PM Care Teams Newspaper Correspondent Relationship Specialty Start Date End Date Omkar Cormier MD [address] [place] [address] PCP - General Family Medicine 07/30/20
--- OUTSIDE RECORDS SUMMARY | 2025-01-21 18:23 | XMS_ITS | Clinical Summary ---
Author Organization [facility] Address [facility] [place] [address] Care Team Providers Care Carbon Paper Coating Supervisor Name Role Phone Omkar Cormier MD Primary Care Provider [phone] Social History Tobacco Use Types Packs/Day Years Used Date Smoking Tobacco: Never Assessed Comments Unknown Sex and Gender Information Value Date Recorded Sex Assigned at Not on file Legal Sex Female 5:53 PM TRAWL NET MAKER Gender Identity Not on file Sexual Orientation Not on file Plan of Treatment Health Maintenance Due Date Last Done Comments Cervical Cancer Screening Pap Smear (Age 30 to 64) Every 3 Years 1991 Annual Physical 12/01/1994 DTaP, Tdap and Td Vaccines (5 - Tdap) 12/01/2002 12/26/1995, 03/20/1994, 12/09/1992, Additional history exists Hepatitis C 12/01/2009 HPV Vaccines (1 - 3-dose SCDM series) 12/01/2018 Cervical Cancer Screening Pap with HPV Testing (Age 30 to 64) Every 5 Years 12/01/2021 Cervical Cancer Screening with HPV 12/01/2021 COVID-19 Vaccine ( season) 2024 Hepatitis B Vaccines Completed 08/26/2002, 01/29/2002, 12/24/2001 Meningococcal B Vaccine Aged Out No l [...] complete this topic Insurance [employer] Care Teams Carbon Paper Coating Supervisor Relationship Specialty Start Date End Date Omkar Cormier MD [address] [place] [phone] PCP - General FAMILY PRACTICE 05/23/21
[2025-01-21 18:24] VITALS: BP 141/83; PULSE 85; RESP 20; TEMP 37.4; O2SAT 99
[2025-01-21 18:51] LABS: EDCOVIDSCREEN Negative (Negative); EDINFLUASCREEN Negative (Negative); EDINFLUBSCREEN Negative (Negative)
--- NOTE | 2025-01-21 18:54 | ED.URI ---
HPI - URI/Sore Throat General Chief Complaint: Upper Respiratory Infection Stated Complaint: covid symptoms, fever symptoms History of Present Illness HPI Narrative: patient is a 34-year-old female, past medical history significant for anxiety, presents to [facility] with 24 history of URI symptoms, including nasal congestion, rhinorrhea, sore throat, dry cough and body aches. She has had a low-grade fever, T-max 100.5? F. she has taken a dose Tylenol for symptom relief. She does report known sick contacts, specifically to coworkers with COVID-19 of recent. She denies any additional associated symptoms or modifying factors. Related Data Home Medications ?Medication ?Instructions ?Recorded ?Confirmed ?Last Taken ?Type ergocalciferol (vitamin D2) 1,250 1,250 mcg PO WEEKLY 11/25/19 12/29/22 Unknown History mcg (50,000 unit) capsule (Vitamin D2) escitalopram oxalate 20 mg tablet 20 mg PO DAILY 10/31/20 12/29/22 Unknown History (Lexapro) propranolol 20 mg tablet mg 07/07/23 Unknown History buspirone 7.5 mg tablet mg 01/21/25 Unknown History famotidine 20 mg tablet mg 01/21/25 Unknown History rizatriptan 10 mg tablet mg 01/21/25 Unknown History Allergies Allergy/AdvReac Type Severity Reaction Status Date / Time sumatriptan Allergy Severe Dyspnea / Verified 01/21/25 18:37 SOB vancomycin AdvReac Redness of Verified 01/21/25 18:37 Skin Review of Systems Constitutional: Constitutional: Reports as per HPI ENT: Reports as per HPI Respiratory: Respiratory: Reports as per HPI [facility] Past Medical History Medical History GERD (gastroesophageal reflux disease) Migraine MRSA infection Mood disorder Hypertension Surgical History Surgical History History of cholecystectomy Family History Family History Mother Heart disease Other No significant family history Social History Social History Smoking status: Never smoker Alcohol intake: never Substance use: never Living arrangements: with family Gender identity (if verbalized by the patient): Female Exam Narrative: Patient sounds nasally congested when conversing, she does not appear to feel well however she does not appear toxical Const: General: no acute distress and alert Nutritional Appearance: well nourished and obese Orientation/consciousness: patient oriented x3 HENMT: Head: normal to inspection Ears: external ears normal, EAC's normal and TM abnormal other ( serous pattern bilaterally, TMs are translucent otherwise) Face/Nose/Sinus: Normal external nose present and Normal nares present Face and sinus: normal facial exam and sinuses nontender Teeth and gingiva: dentition normal Throat: posterior oropharynx normal and uvula midline Eyes: Conjunctivae: conjunctivae normal Pupils: Equal, round and reactive pupils present EOM: EOMs intact bilaterally Neck: Neck: normal visual inspection, no lymphadenopathy and no meningeal signs Resp: Effort & Inspection: normal respiratory effort Auscultation: clear to auscultation bilaterally Cardio: Rate: regular rate Rhythm: regular rhythm Skin: General skin exam: normal color Rashes: no rashes Wounds: no wounds Neuro: General: patient oriented x3, moves all extremities, no meningeal signs, no focal motor deficits and CN's II-XI intact bilaterally Cranial nerves: Yes Nystagmus not present Speech: normal speech Gait exam (Neuro): Normal gait present Extrem: General: normal to inspection, no clubbing, cyanosis or edema and no pedal edema Course Course Emergency Course: COVID floor negative, patient's symptoms are concerning for URI, likely viral, possibly COVID with early testing. Patient is advised a plan to treat supportively, repeat testing is encouraged in 1-2 days if symptoms persist. Will provide a cough suppressant, [id number] Tylenol ibuprofen for fever reduction, pushing fluids and rest. Patient verbalized understanding she is agreeable with plan. She will follow-up with her PCP in 3-5 days if symptoms are not resolving Level of Care: Express Care Visit ([id number]) Vital Signs Vital signs: Vital Signs Temperature 37.4 C 01/21/25 18:24 Pulse Rate 85 01/21/25 18:24 Respiratory Rate 20 01/21/25 18:24 Blood Pressure 141/83 H 01/21/25 18:24 Pulse Oximetry 99 01/21/25 18:24 Oxygen Delivery Room Air 01/21/25 18:24 Temperature 37.4 C 01/21/25 18:24 Pulse Rate 85 01/21/25 18:24 Respiratory Rate 20 01/21/25 18:24 Blood Pressure 141/83 H 01/21/25 18:24 Pulse Oximetry 99 01/21/25 18:24 Oxygen Delivery Room Air 01/21/25 18:24 MDM - URI/Sore Throat MDM Narrative Medical decision making narrative: flu and COVID are negative promethazine DM, [id number] Tylenol ibuprofen, fluids Differential Diagnosis Differential diagnosis: Likely upper respiratory infection, otitis media, sinusitis, viral infection, bronchitis, influenza and pharyngitis Lab Data Labs: Lab Results 01/21/25 Range/Units 18:49 POC Influenza A Ag Negative (Negative) POC Influenza B Ag Negative (Negative) POC SARS CoV-2 Ag Negative (Negative) Discharge Plan Discharge Clinical Impression: Upper respiratory infection Qualifiers: URI type: unspecified viral URI Qualified Code(s): J06.9 - Acute upper respiratory infection, unspecified Patient Disposition: Home Condition: Stable Instructions: Antibiotic Form, Upper Respiratory Infection (ED) Additional Instructions: PUSH FLUIDS AND REST, CONTROL FEVERS WITH TYLENOL AND/OR IBUPROFEN DIRECTED [id number]. YOU MAY TAKE PROMETHAZINE DM PRESCRIBED FOR COUGH SUPPRESSION. FOLLOW-UP WITH YOUR PCP IN 3-5 DAYS IF SYMPTOMS NOT IMPROVING. YOU MAY RETEST FOR COVID [id number] IF YOUR SYMPTOMS ARE NOT IMPROVING IN 2-3 DAYS Patient Language: Guinean Prescriptions: New promethazine-DM 6.25-15 mg/5 mL syrup 5 ml PO Q4-6H PRN (Reason: cough) Qty: 118 0RF No Action ergocalciferol (vitamin D2) [Vitamin D2] 1,250 mcg (50,000 unit) capsule 1,250 mcg PO WEEKLY escitalopram oxalate [Lexapro] 20 mg tablet 20 mg PO DAILY propranolol 20 mg tablet rizatriptan 10 mg tablet famotidine 20 mg tablet buspirone 7.5 mg tablet Follow-up/Referrals: Lito,TRENT Smith [Primary Care Provider] Stand Alone Forms: Work/School Release IP Time of Disposition: 19:00
== END 2025-01-21 19:03 | disposition home or self-care (01) ==
PROVIDERS: Emergency Provider Nurse Practitioner Family; PCP Physician Assistant
DX: J06.9 Acute upper respiratory infection, unspecified (principal); Z20.822 Contact with and (suspected) exposure to COVID-19; I10 Essential (primary) hypertension; K21.9 Gastro-esophageal reflux disease without esophagitis; F41.9 Anxiety disorder, unspecified; Z86.14 Personal history of Methicillin resistant Staphylococcus aureus infection
CPT/HCPCS: 87426; 87804; 99213; G0463

== ENCOUNTER 2025-03-25 01:53 | Emergency (ER) | payer SELFPAY ==
[2025-03-25 01:56] VITALS: BP 154/98; PULSE 58; RESP 18; TEMP 36.4; O2SAT 99
--- OUTSIDE RECORDS SUMMARY | 2025-03-25 01:56 | XMS_ITS | Patient Health Record ---
Author Organization [facility] Address [address] [facility] [address] [place] [address] Care Team Providers Care Radar Signal Processing Engineer Name Role Phone John Bradley Unavailable [phone] Reason For Referral No Information Medications Medication [...] Cyclobenzaprine HCl 10 MG Tablet Oral Active [place] Carbonate 300 MG Capsule Oral Active lamoTRIgine 100 MG Tablet Oral Active Amoxicillin-Pot Clavulanate 875-125 MG Tablet Oral Active Dicyclomine HCl 10 MG Capsule Oral Active dexAMETHasone 2 MG Tablet Oral Active Escitalopram Oxalate 20 MG Tablet Oral Active metroNIDAZOLE 500 MG Tablet Oral Active PEG-3350 AND ELECTROLYTES 236-22.74-6.74 -5.86 gram Solution Reconstituted Oral *Reorder from Mersive for eRx and Interaction Alerts* Active ProAir HFA 108 (90 Base) MCG/ACT Aerosol Solution Inhalation Act rfedrick [place] Carbonate ER 300 MG Tablet Extended Release [...] Coverage End Date [employer] [employer] [address] [place] [address] [id number] CATHERINE KRUSE Self - patient is the insured
--- OUTSIDE RECORDS SUMMARY | 2025-03-25 01:56 | XMS_ITS | Clinical Summary ---
Author Organization [facility] Address [address] [place] [address] Care Team Providers Care Business Segment Manager Name Role Phone Omkar Cormier MD Primary Care Provider [phone] Source Comments [facility],non-owned Affiliates and Associated Physician Practices is amultiple site organization consisting of ambulatory clinics and hospital sitesin [place], [place], [place] and [place]. This disclosure is being madepursuant to the Care Everywhere program and may not contain all information available regarding this patient. Last updated 18.[facility] Allergies Active Allergy Reactions Criticality Noted Date [...] on file Legal Sex Female 1:34 PM CHEMIST BIOLOGICAL Gender Identity Not on file Sexual Orientation Not on file Last Filed Vital Signs Vital Sign Reading Time Taken Comments Blood Pressure 127/77 08/13/2020 12:50 PM CHEMIST BIOLOGICAL Pulse 69 08/13/2020 12:50 PM CHEMIST BIOLOGICAL Temperature 36.6 C (97.9 F) 08/13/2020 8:04 AM CHEMIST BIOLOGICAL Respiratory Rate 16 08/13/2020 12:50 PM CHEMIST BIOLOGICAL Oxygen Saturation 98% 08/13/2020 12:50 PM CHEMIST BIOLOGICAL Inhaled Oxygen Concentration - - Weight 154.2 kg (340 lb) 08/12/2020 3:09 PM CHEMIST BIOLOGICAL Height 180.3 cm (5' 11) 08/12/2020 3:09 PM CHEMIST BIOLOGICAL Body Mass Index 47.42 08/12/2020 3:09 PM CHEMIST BIOLOGICAL Plan of Treatment Health Maintenance Due Date Last Done Comments HIV SCREENING 12/01/2006 HEPATITIS C SCREENING 11/27/2009 DTAP/TDAP/TD VACCINES (1 - Tdap) 12/01/2010 HEPATITIS B VACCINE (1 of 3 - 19+ 3-dose series) 12/01/2010 PNEUMOCOCCAL VACCINE (1 of 2 - PCV) 12/01/2010 HPV VACCINE (1 - 3-dose SCDM series) 12/01/2018 DEPRESSION SCREENING 06/04/2024 COVID-19 VACCINE (1 - 2023-2 5 season) 2025 INFLUENZA VACCINE (#1) 2025 ZOSTER VACCINE (1 [...] 9:52 PM 08/13/2020 1:31 PM Care Teams Business Segment Manager Relationship Specialty Start Date End Date Omkar Cormier MD [address] [place] [address] PCP - General Family Medicine 07/30/20
--- OUTSIDE RECORDS SUMMARY | 2025-03-25 01:56 | XMS_ITS | Clinical Summary ---
Author Organization [facility] Address [address] [place] [address] Phone Care Team Providers Care Software Sales Name Role Phone Luis Morse PAC Primary Care Provider [phone] Allergies Active Allergy Reactions Criticality Noted Date [...] CDT Respiratory Rate 18 06/08/2016 10:14 PM LOSS PREVENTION COORDINATOR Oxygen Saturation 99% 10/24/2018 9:32 AM CDT Inhaled Oxygen Concentration - - Weight 145.2 kg (320 lb) 09/20/2018 6:54 AM CDT Height 180.3 cm (5' 11) 06/08/2016 10:14 PM LOSS PREVENTION COORDINATOR Body Mass Index 44.63 06/08/2016 10:14 PM LOSS PREVENTION COORDINATOR Plan of Treatment Health Maintenance Due Date Last Done Comments Hepatitis C Virus (HCV) Screening 1991 TdaP Immunization 1991 Pap Smear 12/01/2012 Human Papillomavirus (HPV) Immunization (1 - 3-dose SCDM series) 12/01/2018 Cervical Cancer Screening (CCS) 12/01/2021 HPV/Cotest 12/01/2021 Influenza Immunization (#1) 2025 SARS-COV-2 Immunization ( - season) 2025 Respiratory Syncytial Virus (RSV) Immunization (Adult) [...] Insurance MEDICAID [employer] Care Teams Software Sales Relationship Specialty Start Date End Date Luis Morse, PAC [address] [place] [address] PCP - General Family Medicine 06/08/16
--- OUTSIDE RECORDS SUMMARY | 2025-03-25 01:56 | XMS_ITS | Clinical Summary ---
Author Organization [facility] Address [address] [place] [address] Care Team Providers Care Finance Officer Name Role Phone Omkar Cormier MD Primary [...] states she would. Will continue with p.r.n. [place] and morphine . Will add p.r.n. 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 [employer] HMO Advance Directives For more information, please contact: [phone] * Full Code (Latest Code Status on File) Date Activated Date Inactivated Comments 05/13/2020 11:21 AM 05/13/2020 10:05 PM * Full Code Date Activated Date Inactivated Comments 11/28/2017 1:51 PM 12/01/2017 4:27 PM Care Teams Finance Officer Relationship Specialty Start Date End Date Omkar Cormier MD PCP - General 09/12/17
--- OUTSIDE RECORDS SUMMARY | 2025-03-25 01:56 | XMS_ITS | Clinical Summary ---
Author Organization [facility] Address [facility] [place] [address] Care Team Providers Care Electric Sign Assembler Name Role Phone Omkar Cormier MD Primary Care Provider [phone] Social History Tobacco Use Types Packs/Day Years Used Date Smoking Tobacco: Never Assessed Comments Unknown Sex and Gender Information Value Date Recorded Sex Assigned at Not on file Legal Sex Female 5:53 PM PHYSICIAN [facility] Gender Identity Not on file Sexual Orientation [...] with HPV 12/01/2021 COVID-19 Vaccine ( season) 2025 Influenza Adult (#1) 2025 Hepatitis B Vaccines Completed 08/26/2002, 01/29/2002, 12/24/2001 Hepatitis A Vaccines Aged Out No long er eligible based on patient's age to complete [...] complete this topic Insurance AETNA Care Teams Electric Sign Assembler Relationship Specialty Start Date End Date Omkar Cormier MD [address] [place] [phone] PCP - General FAMILY PRACTICE 05/23/21
--- NOTE | 2025-03-25 02:02 | ED.DENTAL ---
HPI - Dental/Oral General Chief complaint: Dental/Oral Stated complaint: Dental Pain Time Seen by Provider: 03/25/25 02:02 Source: patient Mode of arrival: ambulatory Limitations: no limitations History of Present Illness HPI Narrative: Patient is a 34-year-old female with right lower jaw pain/dental pain for the past few days. She has a plan to see a dentist as soon as possible. MD Complaint: tooth pain Location: Tooth # (Thirty-two) Onset (ago): day(s) (3) Duration: constant Severity: moderate Severity scale (1-10): 7 Relieving factors: nothing Exacerbating factors: chewing, cold, heat and drinking fluids Context: history of dental caries and poor dental care Associated symptoms: other (None) Treatment prior to arrival: none Related Data Home Medications ?Medication ?Instructions ?Recorded ?Confirmed ?Last Taken ?Type ergocalciferol (vitamin D2) 1,250 1,250 mcg PO WEEKLY 11/25/19 03/25/25 Unknown History mcg (50,000 unit) capsule (Vitamin D2) escitalopram oxalate 20 mg tablet 20 mg PO DAILY 10/31/20 03/25/25 Unknown History (Lexapro) propranolol 20 mg tablet 20 mg PO Q12H 07/07/23 03/25/25 Unknown History buspirone 7.5 mg tablet 7.5 mg 01/21/25 Unknown History famotidine 20 mg tablet 20 mg PO DAILY 01/21/25 03/25/25 Unknown History rizatriptan 10 mg tablet 10 mg PO PRN PRN migraine headache 01/21/25 03/25/25 Unknown History Allergies Allergy/AdvReac Type Severity Reaction Status Date / Time sumatriptan Allergy Severe Dyspnea / Verified 03/25/25 02:03 SOB vancomycin AdvReac Redness of Verified 03/25/25 02:03 Skin Review of Systems Review of Systems: All systems reviewed & are unremarkable except as noted in HPI and below Constitutional: Constitutional: Reports no additional constitutional complaints Eyes: Eyes: Reports no additional eye complaints ENT: Reports system reviewed and no additional complaints, except as documented Cardiovascular: Cardiovascular: Reports no additional cardiovascular complaints Respiratory: Respiratory: Reports no additional respiratory complaints Gastrointestinal: Gastrointestinal: Reports no additional gastrointestinal complaints Genitourinary: Genitourinary: Reports no additional female genitourinary complaints Musculoskeletal: Musculoskeletal: Reports no additional musculoskeletal complaints Integumentary/Breasts: Skin/Breast: Reports system reviewed and no additional complaints, except as docu Neurologic: Reports system reviewed and no additional complaints, except as documented Psychiatric: Psychiatric: Reports no additional psychiatric complaints Endocrine: Endocrine: Reports no additional endocrine complaints Hematologic/Lymphatic: Hematologic/Lymphatic: Reports no additional hematologic/lymphatic complaints Allergic/Immunologic: Allergic/Immunologic: Reports no additional allergic/immunologic complaints PMFSH Past Medical History Medical History GERD (gastroesophageal reflux disease) Migraine MRSA infection Mood disorder Hypertension Surgical History Surgical History History of cholecystectomy Family History Family History Mother Heart disease Other No significant family history Social History Social History Smoking status: Never smoker Alcohol intake: never Substance use: never Living arrangements: with family Gender identity (if verbalized by the patient): Female Exam Const: General: healthy appearing Nutritional Appearance: well nourished Orientation/consciousness: patient oriented x3 HENMT: Head: normal to inspection Ears: external ears normal Face/Nose/Sinus: Normal external nose present Other: Tooth number 32 appears fractured and open without signs of abscess; localized erythema of the gums Eyes: Conjunctivae: conjunctivae normal Pupils: Equal, round and reactive pupils present EOM: EOMs intact bilaterally Neck: Neck: normal visual inspection Chest: Chest palpation & inspection: normal inspection of the chest Resp: Effort & Inspection: normal respiratory effort and not labored Auscultation: clear to auscultation bilaterally and no crackles Cardio: Rate: regular rate Rhythm: regular rhythm Heart sounds: no murmurs GI: Inspection: non-distended GI Palp: Yes Soft to palpation, No Tenderness to palpation present (GI) and No Guarding due to palpation present (GI) Auscultation: normal bowel sounds : General: Yes bladder normal to palpation Back/Spine/Pelvis: Back: no CVA tenderness Skin: General skin exam: normal color Rashes: no rashes Wounds: no wounds Neuro: General: patient oriented x3, moves all extremities and no meningeal signs Extrem: General: normal to inspection Psych: Mental Status: mental status grossly normal Affect: normal affect Attitude: cooperative Course Vital Signs Vital signs: Vital Signs Temperature 36.4 C 03/25/25 01:56 Pulse Rate 58 L 03/25/25 01:56 Respiratory Rate 18 03/25/25 01:56 Blood Pressure 154/98 H 03/25/25 01:56 Pulse Oximetry 99 03/25/25 01:56 Oxygen Delivery Room Air 03/25/25 01:56 Temperature 36.4 C 03/25/25 01:56 Pulse Rate 58 L 03/25/25 01:56 Respiratory Rate 18 03/25/25 01:56 Blood Pressure 154/98 H 03/25/25 01:56 Pulse Oximetry 99 03/25/25 01:56 Oxygen Delivery Room Air 03/25/25 01:56 MDM - Dental/Oral MDM Narrative Medical decision making narrative: Patient is a 34-year-old female with right lower jaw pain due to dental caries and fractures of the teeth. Dentist as soon as possible. Augmentin. Toradol. Ultram. Discharge Plan Discharge Clinical Impression: Mandible pain Patient Disposition: Home Condition: Stable Instructions: Toothache (ED) Additional Instructions: Please see a dentist as soon as possible. Patient Language: Greek Prescriptions: New amoxicillin-pot clavulanate 875-125 mg tablet 1 tablet PO BID 10 Days Qty: 20 0RF tramadol 50 mg tablet 50 mg PO Q8H PRN (Reason: pain) Qty: 20 0RF Rx Instructions: 1-2 tabs per dose No Action ergocalciferol (vitamin D2) [Vitamin D2] 1,250 mcg (50,000 unit) capsule 1,250 mcg PO WEEKLY escitalopram oxalate [Lexapro] 20 mg tablet 20 mg PO DAILY propranolol 20 mg tablet 20 mg PO Q12H rizatriptan 10 mg tablet 10 mg PO PRN PRN (Reason: migraine headache) famotidine 20 mg tablet 20 mg PO DAILY buspirone 7.5 mg tablet 7.5 mg Follow-up/Referrals: Lito,TRENT Smith [Primary Care Provider]
--- OUTSIDE RECORDS SUMMARY | 2025-03-25 02:45 | XMS_ITS | Clinical Summary ---
Author Organization [facility] Address [address] [place] [address] Care Team Providers Care Television Cameraman Name Role Phone Omkar Cormier MD Primary [...] states she would. Will continue with p.r.n. [address] and morphine . Will add p.r.n. 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 Gender Identity Not on file Sexual Orientation [...] patient's age to [place] [address] [facility] H[facility] [place] [address] [employer] HMO Advance Directives For more information, please contact: [phone] * Full Code (Latest Code Status on File) Date Activated Date Inactivated Comments 05/13/2020 11:21 AM 05/13/2020 10:05 PM * Full Code Date Activated Date Inactivated Comments 11/28/2017 1:51 PM 12/01/2017 4:27 PM Care Teams Television Cameraman Relationship Specialty Start Date End Date Omkar Cormier MD PCP - General 09/12/17
--- OUTSIDE RECORDS SUMMARY | 2025-03-25 02:45 | XMS_ITS | Clinical Summary ---
Author Organization [facility] Address [address] [place] [address] Care Team Providers Care Partner Name Role Phone Omkar Cormier MD Primary Care Provider [phone] Source Comments [facility],non-owned Affiliates and Associated Physician Practices is amultiple site organization consisting of ambulatory clinics and hospital sitesin [place], [place], [place] and [place]. This disclosure is being madepursuant to the Care Everywhere program and may not contain all information available regarding this patient. Last updated 18.[facility] Allergies Active Allergy Reactions Criticality Noted Date [...] on file Legal Sex Female 1:34 PM LOSS CONTROL ENGINEER Gender Identity Not on file Sexual Orientation Not on file Last Filed Vital Signs Vital Sign Reading Time Taken Comments Blood Pressure 127/77 08/13/2020 12:50 PM LOSS CONTROL ENGINEER Pulse 69 08/13/2020 12:50 PM LOSS CONTROL ENGINEER Temperature 36.6 C (97.9 F) 08/13/2020 8:04 AM LOSS CONTROL ENGINEER Respiratory Rate 16 08/13/2020 12:50 PM LOSS CONTROL ENGINEER Oxygen Saturation 98% 08/13/2020 12:50 PM LOSS CONTROL ENGINEER Inhaled Oxygen Concentration - - Weight 154.2 kg (340 lb) 08/12/2020 3:09 PM LOSS CONTROL ENGINEER Height 180.3 cm (5' 11) 08/12/2020 3:09 PM LOSS CONTROL ENGINEER Body Mass Index 47.42 08/12/2020 3:09 PM LOSS CONTROL ENGINEER Plan of Treatment Health Maintenance Due Date [...] 9:52 PM 08/13/2020 1:31 PM Care Teams Partner Relationship Specialty Start Date End Date Omkar Cormier MD [address] [place] [address] PCP - General Family Medicine 07/30/20
--- OUTSIDE RECORDS SUMMARY | 2025-03-25 02:45 | XMS_ITS | Clinical Summary ---
Author Organization [facility] Address [address] [place] [address] Phone Care Team Providers Care Printer Apprentice Name Role Phone Luis Morse PAC Primary Care Provider [phone] Allergies Active Allergy Reactions Criticality Noted Date [...] CDT Respiratory Rate 18 06/08/2016 10:14 PM DOCK GRADER Oxygen Saturation 99% 10/24/2018 9:32 AM CDT Inhaled Oxygen Concentration - - Weight 145.2 kg (320 lb) 09/20/2018 6:54 AM CDT Height 180.3 cm (5' 11) 06/08/2016 10:14 PM DOCK GRADER Body Mass Index 44.63 06/08/2016 10:14 PM DOCK GRADER Plan of Treatment Health Maintenance Due Date [...] Insurance MEDICAID [facility] [employer] Care Teams Printer Apprentice Relationship Specialty Start Date End Date Luis Morse, PAC [address] [place] [address] PCP - General Family Medicine 06/08/16
--- OUTSIDE RECORDS SUMMARY | 2025-03-25 02:45 | XMS_ITS | Clinical Summary ---
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
[2025-03-25] MEDS: KETOROLAC (*BKC) 60 MG/2 ML VIAL IM (02:49)
[2025-03-25 03:08] VITALS: BP 136/72; PULSE 58; RESP 16; TEMP 36.8; O2SAT 100
== END 2025-03-25 03:10 | disposition home or self-care (01) ==
PROVIDERS: Emergency Provider Emergency Medicine; PCP Physician Assistant
DX: R68.84 Jaw pain (principal); I10 Essential (primary) hypertension; Z79.899 Other long term (current) drug therapy
CPT/HCPCS: 96372; 99283; A9270; J1885

== ENCOUNTER 2025-04-06 17:00 | Emergency (ER) | payer SELFPAY ==
[2025-04-06 17:04] VITALS: BP 180/116; PULSE 108; RESP 22; TEMP 36.7; O2SAT 98
--- OUTSIDE RECORDS SUMMARY | 2025-04-06 17:07 | XMS_ITS | Clinical Summary ---
Author Organization [facility] Address [address] [place] [address] Care Team Providers Care Associate Dean Of Women Name Role Phone Omkar Cormier MD Primary [...] states she would. Will continue with p.r.n. [place] and morphine . Will add p.r.n. 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 Gender Identity Not on file Sexual Orientation [...] Plan of Treatment Not on [place] [address] [place] [address] MEDICAID [facility]MO [facility] [place] [facility] Advance Directives For more information, please contact: [phone] * Full Code (Latest Code Status on File) Date Activated Date Inactivated Comments 05/13/2020 11:21 AM 05/13/2020 10:05 PM * Full Code Date Activated Date Inactivated Comments 11/28/2017 1:51 PM 12/01/2017 4:27 PM Care Teams Associate Dean Of Women Relationship Specialty Start Date End Date Omkar Cormier MD PCP - General 09/12/17
--- OUTSIDE RECORDS SUMMARY | 2025-04-06 17:07 | XMS_ITS | Clinical Summary ---
Author Organization [facility] Address [address] [place] [address] Phone Care Team Providers Care Wool Supplier Name Role Phone Luis Morse PAC Primary Care Provider [phone] Allergies Active Allergy Reactions Criticality Noted Date [...] CDT Respiratory Rate 18 06/08/2016 10:14 PM CRIMINAL INTELLIGENCE SPECIALIST Oxygen Saturation 99% 10/24/2018 9:32 AM CDT Inhaled Oxygen Concentration - - Weight 145.2 kg (320 lb) 09/20/2018 6:54 AM CDT Height 180.3 cm (5' 11) 06/08/2016 10:14 PM CRIMINAL INTELLIGENCE SPECIALIST Body Mass Index 44.63 06/08/2016 10:14 PM CRIMINAL INTELLIGENCE SPECIALIST Plan of Treatment Health Maintenance Due Date Last Done Comments Hepatitis C Virus (HCV) Screening 1991 TdaP Immunization 1991 Pap Smear 12/01/2012 Human Papillomavirus (HPV) Immunization (1 - 3-dose SCDM series) 12/01/2018 Cervical Cancer Screening (CCS) 12/01/2021 HPV/Cotest 12/01/2021 Influenza Immunization (#1) 2025 SARS-COV-2 Immunization (2024- season) 2025 Respiratory Syncytial Virus (RSV) Immunization [...] Insurance MEDICAID [facility] Care Teams Wool Supplier Relationship Specialty Start Date End Date Luis Morse, PAC [address] [place] [address] PCP - General Family Medicine 06/08/16
--- OUTSIDE RECORDS SUMMARY | 2025-04-06 17:07 | XMS_ITS | Clinical Summary ---
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
--- NOTE | 2025-04-06 17:51 | ED_ITS ---
HPI - URI/Sore Throat General Chief Complaint: Upper Respiratory Infection Stated Complaint: congestion, throat pain, fever Time Seen by Provider: 04/06/25 17:53 Source: patient, RN notes reviewed and old records reviewed Mode of arrival: ambulatory Limitations: no limitations History of Present Illness HPI Narrative: 34-year-old female presents to the [facility] with complaints of sore throat, fevers and congestion that started this morning. Treatment prior to arrival Related Data Home Medications ?Medication ?Instructions ?Recorded ?Confirmed ?Last Taken ?Type ergocalciferol (vitamin D2) 1,250 1,250 mcg PO WEEKLY 11/25/19 03/25/25 Unknown History mcg (50,000 unit) capsule (Vitamin D2) escitalopram oxalate 20 mg tablet 20 mg PO DAILY 10/3103/25/25 Unknown History (Lexapro) propranolol 20 mg tablet 20 mg PO Q12H 07/07/2303/25 Unknown History famotidine 20 mg tablet 20 mg PO DAILY 01/21/2503/05 Unknown History rizatriptan 10 mg tablet 10 mg PO PRN PRN migraine he adache 01/21/25 03/25/25 Unknown History Allergies Allergy/AdvReac Type Severity Reaction Status Date / Time sumatriptan Allergy Severe Dyspnea / Verified 04/06/25 18:05 SOB vancomycin AdvReac Redness of Verified 04/06/25 18:05 Skin Review of Systems Review of Systems: All systems reviewed & are unremarkable except as noted in HPI and below Constitutional: Constitutional: Reports as per HPI, Reports body ache(s), Reports chills, Reports fatigue and Reports fever(s) ENT: Reports as per HPI and Reports sore throat Cardiovascular: Cardiovascular: Reports no additional cardiovascular complaints, Denies chest pain and Denies dyspnea Respiratory: Respiratory: Reports no additional respiratory complaints, Denies chest congestion, Denies cough and Denies dyspnea Musculoskeletal: Musculoskeletal: Reports no additional musculoskeletal complaints Integumentary/Breasts: Skin/Breast: Reports system reviewed and no additional complaints, except as docu PMFSH Past Medical History Medical History GERD (gastroesophageal reflux disease) Migraine MRSA infection Mood disorder Hypertension Surgical History Surgical History History of cholecystectomy Family History Family History Mother Heart disease Other No significant family history Social History Social History Smoking status: Never smoker Alcohol intake: never Substance use: never Living arrangements: with family Gender identity (if verbalized by the patient): Female Comments At the time of my signature, I reviewed and agree with the nursing past medical, surgical, social, and family history. There is no relevant family history pertinent to the patient complaint. Exam Const: General: cooperative, healthy appearing, comfortable, no acute distress, well developed, alert and well nourished Nutritional Appearance: well nourished and obese Orientation/consciousness: patient oriented x3 Limitations: no limitations HENMT: Head: normal to inspection Ears: hearing grossly normal bilaterally, external ears normal, TM's normal bilaterally, EAC's normal, mastoids normal and no periauricular adenopathy Throat: uvula midline, abnormal tonsil bilateral erythema and hypertrophy 3+, posterior oropharynx abnormal erythema; no edema and no uvular edema Eyes: General: appearance normal, both eyes and all related structures Alignment and Position: alignment normal Neck: Neck: normal visual inspection, full ROM, no lymphadenopathy and no meningeal signs Chest: Chest palpation & inspection: normal inspection of the chest Resp: Effort & Inspection: normal respiratory effort and able to speak in complete sentences Auscultation: clear to auscultation bilaterally, no crackles, no rales, no rhonchi and no wheezes Cardio: Rate: regular rate Skin: General skin exam: normal color and no rashes or lesions noted Neuro: General: patient oriented x3, gait normal, moves all extremities and no meningeal signs Cognition (Neuro): normal cognition Speech: normal speech Gait exam (Neuro): Normal gait present Extrem: General: normal to inspection, full ROM, capillary refill normal and normal gait Psych: Appearance: grossly normal and well kempt Mental Status: mental status grossly normal Speech and movement: Normal speech and movement present and Clear speech present Affect: normal affect Attitude: cooperative Course Course Level of Care: Express Care Visit Vital Signs Vital signs: Vital Signs Temperature 98.0 F 04/06/25 17:04 Pulse Rate 108 H 04/06/25 17:04 Respiratory Rate 22 H 04/06/25 17:04 Blood Pressure 180/116 H 04/06/25 17:04 Pulse Oximetry 98 04/06/25 17:04 Oxygen Delivery Room Air 04/06/25 17:04 Temperature 98.0 F 04/06/25 17:04 Pulse Rate 108 H 04/06/25 17:04 Respiratory Rate 22 H 04/06/25 17:04 Blood Pressure 180/116 H 04/06/25 17:04 Pulse Oximetry 98 04/06/25 17:04 Oxygen Delivery Room Air 04/06/25 17:04 Reviewed MDM - URI/Sore Throat MDM Narrative Medical decision making narrative: Patient sitting in exam. Patient is nontoxic, blood pressure is elevated. Patient presents with sore throat and fever as well as congestion since this morning. Patient strep is positive, will cover with cefdinir due Be on Augmentin recently. Patient's blood pressure is elevated, discussed signs and symptoms to proceed to the emergency room as well as the importance of following up with primary care provider Discharge instructions reviewed with patient, as well as provided in writing per nursing staff. The instructions also include specific and strict return/GO TO THE ER as well as f/u information. All questions have been answered, and the patient deny any further questions wit h discharge and discharge plan. Some parts of this dictation were generated by voice recognition software and may contain typographical and/or grammatical inaccuracies. Differential Diagnosis Differential diagnosis: Likely upper respiratory infection, otitis media, sinusitis, viral infection, bronchitis, influenza and pharyngitis Lab Data Labs: Lab Results 04/06/25 Range/Units 17:12 POC Influenza A Ag Negative (Negative) POC Influenza B Ag Negative (Negative) POC SARS CoV-2 Ag Negative (Negative) POC Grp A Strep Screen Positive (Negative) reviewed Critical Care Time Critical Care Time Critical Care Time: No Discharge Plan Discharge Clinical Impression: Strep pharyngitis, Elevated blood pressure reading Patient Disposition: Home Condition: Stable Instructions: Antibiotic Form, Strep Throat (ED) Additional Instructions: After 24-48 hours on antibiotics, Throw the toothbrush away, start using a new one. Please be sure to wash bed linens especially pillow cases. Repeat once you finish the antibiotics. Do not share drinks. Take Motrin alternating with Tylenol for pain and fever alternating every 4 hours. Increase fluids, avoid caffeine. Give plenty of water, juice, Gatorade, Pedialyte, ice pops in Jell-O Follow up with Primary provider if not getting better this week For new or worsening symptoms go directly to the emergency room Patient Language: German Prescriptions: New cefdinir 300 mg capsule 300 mg PO Q12H Qty: 20 0RF No Action tramadol 50 mg tablet 50 mg PO Q8H PRN (Reason: pain) Qty: 20 0RF Rx Instructions: 1-2 tabs per dose ergocalciferol (vitamin D2) [Vitamin D2] 1,250 mcg (50,000 unit) capsule 1,250 mcg PO WEEKLY escitalopram oxalate [Lexapro] 20 mg tablet 20 mg PO DAILY propranolol 20 mg tablet 20 mg PO Q12H rizatriptan 10 mg tablet 10 mg PO PRN PRN (Reason: migraine headache) famotidine 20 mg tablet 20 mg PO DAILY Follow-up/Referrals: Lito,TRENT Smith [Primary Care Provider] - 2 Weeks Clinical Impression: Strep pharyngitis; Elevated blood pressure reading Stand Alone Forms: Work/School Release IP Time of Disposition: 18:00
[2025-04-06 17:57] LABS: EDCOVIDSCREEN Negative (Negative); EDINFLUASCREEN Negative (Negative); EDINFLUBSCREEN Negative (Negative); EDSTREPNEGPOS1 Positive (Negative)
== END 2025-04-06 18:08 | disposition home or self-care (01) ==
PROVIDERS: Emergency Provider Nurse Practitioner; PCP Physician Assistant
DX: J02.0 Streptococcal pharyngitis (principal); Z20.822 Contact with and (suspected) exposure to COVID-19; I10 Essential (primary) hypertension; K21.9 Gastro-esophageal reflux disease without esophagitis; F39 Unspecified mood [affective] disorder; Z86.14 Personal history of Methicillin resistant Staphylococcus aureus infection
CPT/HCPCS: 87426; 87804; 87880; 99213; G0463